=== PATIENT | male | born 1970 | race Caucasian/White ===

== ENCOUNTER 2019-03-22 09:56 | Inpatient (IN) | payer SELFPAY ==
[~2019-03-22] VITALS: Ht 188 cm; Wt 84.5 kg
[2019-03-22 11:30] LABS: BASOPHILS 0.1 % (0-2); EOSINOPHILS 0.2 % (0-7); HEMATOCRIT 50.1 % (42.0-54.0); HEMOGLOBIN 17.9 g/dL (13.5-17.5); IMMATURE GRANULOCYTES 0.3 % (0-5); LYMPHOCYTES 7.8 % (15-50); MCH 34.1 pg (26.0-34.0); MCHC 35.7 g/dL (31.0-37.0); MCV 95.4 fL (80.0-100.0); MEAN PLATELET VOLUME 9.7 fL (7.4-10.4); MONOCYTES 6.1 % (2-11); NEUTROPHILS 85.5 % (40-80); PLATELET COUNT 275 10x3/uL (130-400); RBC 5.25 10x6/uL (4.20-6.10); RDW 13.2 % (11.5-14.5); WBC 16.3 10x3/uL (4.8-10.8)
[2019-03-22 11:41] LABS: APPEARANCE CLOUDY (CLEAR); COLOR YELLOW (YELLOW)
[2019-03-22 11:42] LABS: BILIRUBIN NEGATIVE (NEGATIVE); GLUCOSE NEGATIVE (NEGATIVE); KETONE NEGATIVE (NEGATIVE); NITRITE NEGATIVE (NEGATIVE); PROTEIN TRACE mg/dL (NEGATIVE); SPECIFIC GRAVITY 1.005 (1.005-1.020); UROBILINOGEN NORMAL (NORMAL)
[2019-03-22 11:43] LABS: RED CELLS - URINE NONE SEEN /hpf (0-5)
[2019-03-22 11:44] LABS: AMORPHOUS SEDIMENT >1+ /lpf (NONE SEEN); BACTERIA MODERATE /hpf (NEGATIVE)
[2019-03-22 11:45] LABS: EPITHELIAL CELLS 0-5 /hpf (0-5)
[2019-03-22 11:53] LABS: CALC OSMOLALITY 269 mosm/kg (275-300); CALCIUM 9.3 mg/dL (8.5-10.1); CARBON DIOXIDE 28.8 mmol/L (21.0-32.0); CHLORIDE - SERUM 100 mmol/L (98-107); CREATININE - SERUM 0.9 mg/dL (0.6-1.3); GLUCOSE 104 mg/dL (74-106); POTASSIUM - SERUM 4.1 mmol/L (3.5-5.1); SODIUM 136 mmol/L (136-145); UREA NITROGEN 8 mg/dL (7-18); eGFR NON AFRICAN AMERICAN > 90 mL/min (90-120)
[2019-03-22 11:57] LABS: ALBUMIN 4.2 g/dL (3.4-5.0); ALKALINE PHOSPHATASE 78 U/L (46-116); ALT (SGPT) 25 U/L (10-68); BILIRUBIN - TOTAL 1.17 mg/dL (0.2-1.3); PROTEIN - SERUM 8.5 g/dL (6.4-8.2)
[2019-03-22 14:33] VITALS: BP 133/87
[2019-03-22 16:48] VITALS: BP 134/64; BMI 22.5
[2019-03-22 16:50] LABS: MAGNESIUM - SERUM 2.6 mg/dL (1.8-2.4)
[2019-03-22 21:36] VITALS: BP 135/71
--- NOTE | 2019-03-22 22:11 | NUR ---
LYIN QUIETLY WTIH NO DISTRESS NOTED. IV INTAC TO LAC.NO REDNESS OR EDEMA NOTED. COMPLAITNS OF ABD TENDERNESS TO TOUCH. PATIENT UP AD IAN IN ROOM. CL IN REACH
[2019-03-23 01:05] VITALS: BP 154/70
--- NOTE | 2019-03-23 04:18 | NUR ---
I have reviewed this patient and I concur with the Shift Assessment completed by the Licensed Practical Nurse today this shift.
[2019-03-23 05:16] VITALS: BP 128/67
[2019-03-23] MEDS ORDERED: OMEPRAZOLE20 M1 PO (05:38)
[2019-03-23 06:14] LABS: BASOPHILS 0.1 % (0-2); EOSINOPHILS 0.5 % (0-7); HEMATOCRIT 44.6 % (42.0-54.0); HEMOGLOBIN 15.5 g/dL (13.5-17.5); IMMATURE GRANULOCYTES 0.3 % (0-5); LYMPHOCYTES 11.9 % (15-50); MCH 33.3 pg (26.0-34.0); MCHC 34.8 g/dL (31.0-37.0); MCV 95.9 fL (80.0-100.0); MEAN PLATELET VOLUME 10.4 fL (7.4-10.4); MONOCYTES 7.4 % (2-11); NEUTROPHILS 79.8 % (40-80); PLATELET COUNT 248 10x3/uL (130-400); RBC 4.65 10x6/uL (4.20-6.10); RDW 13.1 % (11.5-14.5)
[2019-03-23 06:16] LABS: WBC 11.6 10x3/uL (4.8-10.8)
[2019-03-23 06:40] LABS: ALKALINE PHOSPHATASE 67 U/L (46-116); BILIRUBIN - TOTAL 1.03 mg/dL (0.2-1.3); CALC OSMOLALITY 275 mosm/kg (275-300); CALCIUM 8.5 mg/dL (8.5-10.1); CARBON DIOXIDE 23.8 mmol/L (21.0-32.0); CHLORIDE - SERUM 106 mmol/L (98-107); CREATININE - SERUM 0.8 mg/dL (0.6-1.3); GLUCOSE 85 mg/dL (74-106); LIPASE 81 U/L (73-393); POTASSIUM - SERUM 4.2 mmol/L (3.5-5.1); PROTEIN - SERUM 7.1 g/dL (6.4-8.2); SODIUM 139 mmol/L (136-145); UREA NITROGEN 10 mg/dL (7-18); eGFR NON AFRICAN AMERICAN > 90 mL/min (90-120)
[2019-03-23 06:43] LABS: ALT (SGPT) 17 U/L (10-68); AMYLASE - SERUM 35 U/L (25-115)
[2019-03-23 07:56] VITALS: BP 110/73
--- NOTE | 2019-03-23 08:02 | NUR ---
ALERT AND ORIENTED X4 ABDOMINAL TENDERNESS NOTED TO LLQ AND RLQ OF ABDOMEN ANTERIOR. WITH BS NOTEDX4. IV INFUSING TO RT F/A AT PRESCRIBED RATE. LUNGS CTA. ENCOURAGED TO USE CALL LIGHT FOR ASSIST. UP ADLIB
--- NOTE | 2019-03-23 19:00 | NUR ---
BEDSIDE REPORT RECEIVED AND CARE OF PT ASSUMED. PT LYING IN HIGH WEATHERS'S POSITION WATCHING TV. IV TO RIGHT FA PATENT WITH NS INFUSING AT KVO. NO NEEDS VOICED AT THIS TIME.
[2019-03-23 19:30] VITALS: BP 122/71
--- NOTE | 2019-03-23 21:03 | NUR ---
GAVE MORPHINE 4 MG IVP AND ATIVAN 1 MG PO FOR C/O PAIN AND ANXIETY. WILL MONITOR FOR EFFECTIVENESS.
--- NOTE | 2019-03-23 22:06 | NUR ---
GAVE CRANBERRY JUICE FOR SHACK PER REQUEST.
[2019-03-24 00:30] VITALS: BP 118/67
[2019-03-24 04:30] VITALS: BP 126/81
[2019-03-24 06:05] LABS: ALKALINE PHOSPHATASE 66 U/L (46-116); ALT (SGPT) 17 U/L (10-68); AMYLASE - SERUM 34 U/L (25-115); BILIRUBIN - TOTAL 0.77 mg/dL (0.2-1.3); CALC OSMOLALITY 277 mosm/kg (275-300); CALCIUM 9.1 mg/dL (8.5-10.1); CARBON DIOXIDE 22.9 mmol/L (21.0-32.0); CHLORIDE - SERUM 107 mmol/L (98-107); CREATININE - SERUM 0.8 mg/dL (0.6-1.3); GLUCOSE 111 mg/dL (74-106); LIPASE 82 U/L (73-393); PROTEIN - SERUM 7.3 g/dL (6.4-8.2); SODIUM 139 mmol/L (136-145); UREA NITROGEN 10 mg/dL (7-18); eGFR NON AFRICAN AMERICAN > 90 mL/min (90-120)
[2019-03-24 06:29] LABS: BASOPHILS 0.2 % (0-2); EOSINOPHILS 1.2 % (0-7); HEMOGLOBIN 15.6 g/dL (13.5-17.5); IMMATURE GRANULOCYTES 0.2 % (0-5); LYMPHOCYTES 12.1 % (15-50); MCH 33.1 pg (26.0-34.0); MCHC 34.7 g/dL (31.0-37.0); MCV 95.3 fL (80.0-100.0); MEAN PLATELET VOLUME 10.2 fL (7.4-10.4); MONOCYTES 7.8 % (2-11); NEUTROPHILS 78.5 % (40-80); PLATELET COUNT 247 10x3/uL (130-400); RBC 4.72 10x6/uL (4.20-6.10); RDW 12.6 % (11.5-14.5)
[2019-03-24 08:10] VITALS: BP 111/63
--- NOTE | 2019-03-24 09:00 | NUR ---
ALERT AND ORIENTED X4 WITH DECREASED LOWER ABDOMINAL TENDERNESS ON PALPATION TO RLQ AND LLQ OF ABDOMEN. WITH BOWEL SOUNDS NOTED X4.IV TO RT. F/A INFUSING AT PRESCRIBED RATE. RESIDENT HAD LOOSE DARK TARRY STOOL YESTERDAY. DENEIS ANY PAIN OR DISCOMFORT AT THIS TIME AND ENCOURAGED TO USE CALL LIGHT FOR ASSSIT.
[2019-03-24 12:11] VITALS: BP 165/67
--- NOTE | 2019-03-24 12:32 | NUR ---
PT COMPLAINING OF CHARP LOWER ABDOMINAL PAIN WITH TENDERNESS NOTED ON PALPATION. PORPHINE 4MG GIVEN FOR SHARP STABBING PAIN 01/29. SKIN WARM AND DRY. WILL CONTINUE TO MONITOR. STATES FEELS UNABLE TO PASS GAS AND HAS PAIN THAT RADIATIATES UP HIS ANUS.
--- NOTE | 2019-03-24 14:07 | NUR ---
PT CONTINUES TO COMPLAIN OF LOWER ABDOMINAL PAIN AND BURNING ON URINATION.V/S 130/79 55 20 98.9 TEMP. TYLENOL AND ATIVAN GIVEN FOR PAIN AND ANXIETY. INSTRUCTD ON NEED FOR URINE SPECIMEN. SKIN WARM AND DRY AND INSTRUCTD NOT TO GET UP W/O ASSIST.
[2019-03-24 14:09] VITALS: BP 129/79
[2019-03-24 15:29] LABS: APPEARANCE CLEAR (CLEAR); BILIRUBIN NEGATIVE (NEGATIVE); COLOR YELLOW (YELLOW); GLUCOSE NEGATIVE (NEGATIVE); KETONE MODERATE mg/dL (NEGATIVE); NITRITE NEGATIVE (NEGATIVE); PROTEIN NEGATIVE (NEGATIVE); UROBILINOGEN NORMAL (NORMAL)
[2019-03-24 15:30] LABS: BACTERIA FEW /hpf (NEGATIVE); EPITHELIAL CELLS 0-5 /hpf (0-5); RED CELLS - URINE 0-5 /hpf (0-5); UDS - AMPHET NEGATIVE QUAL (NEGATIVE); UDS - BARB NEGATIVE QUAL (NEGATIVE); UDS - BENZO NEGATIVE QUAL (NEGATIVE); UDS - COCAINE NEGATIVE QUAL (NEGATIVE); UDS - OPIATE POSITIVE QUAL (NEGATIVE); UDS - PCP NEGATIVE QUAL (NEGATIVE); UDS - THC POSITIVE QUAL (NEGATIVE); WHITE CELLS - URINE 0-5 /hpf (NEGATIVE)
[2019-03-24 15:31] LABS: MUCUS <1+ /lpf (NONE SEEN)
--- NOTE | 2019-03-24 19:00 | NUR ---
BEDSIDE REPORT RECEIVED AND CARE OF PT ASSUMED. PT UP TO RESTROOM AT THIS TIME. C/O SEVERE PAIN IN ABDOMEN. PT VERY ANXIOUS. IV TO RIGHT FA PATENT WITH MVI INFUSING AT 125 ML/HR. WILL MONITOR FOR NEEDS.
--- NOTE | 2019-03-24 19:20 | NUR ---
GAVE MORPHINE 4 MG IVP AND ATIVAN 1 MG PO FOR C/O PAIN AND ANXIETY. WILL MONITOR FOR EFFECTIVENESS.
[2019-03-24 19:30] VITALS: BP 141/84
--- NOTE | 2019-03-24 19:53 | NUR ---
GAVE LIBRIUM P0 PER NEW ORDER.
--- NOTE | 2019-03-24 20:23 | NUR ---
GAVE ATIVAN 1 MG PO PT CONTINUES TO BE VERY AGGITATED. WILL CONTINUE TO MONITOR FOR NEEDS.
--- NOTE | 2019-03-24 22:09 | NUR ---
PT RESTING IN SUPINE POSITION WITH EYES CLOSED AT THIS TIME. WILL CONTINUE TO MONITOR FOR NEEDS.
--- NOTE | 2019-03-24 23:34 | NUR ---
GAVE MORPHINE 4 MG IVP PER REQUEST FOR ABDOMINAL PAIN.
[2019-03-25 00:30] VITALS: BP 131/89
--- NOTE | 2019-03-25 00:36 | NUR ---
GAVE ATIVAN 1 MG PO PER REQUEST FOR ANXIETY / ? DT'S...PT VERY RESTLESS. WILL MONITOR FOR EFFECTIVENESS.
[2019-03-25 06:26] LABS: BASOPHILS 0.1 % (0-2); EOSINOPHILS 0.1 % (0-7); HEMATOCRIT 47.3 % (42.0-54.0); HEMOGLOBIN 16.7 g/dL (13.5-17.5); IMMATURE GRANULOCYTES 0.3 % (0-5); LYMPHOCYTES 3.3 % (15-50); MCH 33.3 pg (26.0-34.0); MCHC 35.3 g/dL (31.0-37.0); MCV 94.2 fL (80.0-100.0); MEAN PLATELET VOLUME 10.3 fL (7.4-10.4); MONOCYTES 4.4 % (2-11); NEUTROPHILS 91.8 % (40-80); PLATELET COUNT 278 10x3/uL (130-400); RBC 5.02 10x6/uL (4.20-6.10); RDW 12.5 % (11.5-14.5)
[2019-03-25 06:45] LABS: WBC 18.4 10x3/uL (4.8-10.8)
[2019-03-25 06:56] LABS: ALKALINE PHOSPHATASE 64 U/L (46-116); ALT (SGPT) 16 U/L (10-68); BILIRUBIN - TOTAL 1.01 mg/dL (0.2-1.3); CALC OSMOLALITY 276 mosm/kg (275-300); CALCIUM 8.5 mg/dL (8.5-10.1); CARBON DIOXIDE 22.1 mmol/L (21.0-32.0); CHLORIDE - SERUM 104 mmol/L (98-107); CREATININE - SERUM 0.7 mg/dL (0.6-1.3); GLUCOSE 121 mg/dL (74-106); POTASSIUM - SERUM 4.5 mmol/L (3.5-5.1); PROTEIN - SERUM 6.4 g/dL (6.4-8.2); SODIUM 138 mmol/L (136-145); eGFR NON AFRICAN AMERICAN > 90 mL/min (90-120)
[2019-03-25 06:57] LABS: AMYLASE - SERUM 20 U/L (25-115); LIPASE 41 U/L (73-393); UREA NITROGEN 13 mg/dL (7-18)
--- NOTE | 2019-03-25 07:20 | NUR ---
PT RESTING IN BED. NO SIGNS OF DISTRESS. IV TO RIGHT FORARM PATENT NO REDNESS OR TENDERNESS. COMPLAINS OF PAIN. MEDICATIONS GIVEN. DENIES ANY FURTHER NEED AT THIS TIME. CALL LIGHT IN REACH.BED LOW POSITION. NO FAMILY AT BEDSIDE AT THIS TIME.
[2019-03-25 08:29] VITALS: BP 137/93
[2019-03-25 13:00] VITALS: BP 139/94
[2019-03-25 14:45] LABS: APTT 34.2 SECONDS (22.8-39.4); INR 1.18 (0.85-1.17); PROTIME 14.5 SECONDS (11.6-15.0)
[2019-03-25 14:55] VITALS: BMI 22.4
[2019-03-25 15:45] VITALS: BP 126/89
[2019-03-25 15:58] VITALS: Ht 188 cm; Wt 84.5 kg
[2019-03-25 17:14] LABS: ERYTHROCYTE SEDIMENTATION RATE 20 mm/hr (0-15)
--- NOTE | 2019-03-25 18:44 | NUR ---
I have reviewed this patient and I concur with the Shift Assessment completed by the Licensed Practical Nurse today this shift.
[2019-03-25 19:30] VITALS: BP 143/94; BP 158/96
--- NOTE | 2019-03-25 19:45 | NUR ---
PT SITTING UP IN BED WITHOUT DISTRESS, AOX4. IV RIGHT FA INFUSING BANANA BAG @ 125. PT STATES PAIN IN ABD 10/29. WILL GIVE PAIN MED ORDERED. DENIES NEEDS AT THIS TIME. CL IN REACH, WILL CTM
--- NOTE | 2019-03-25 20:20 | NUR ---
MORPHINE GIVEN FOR PAIN 02/28 IN ABD. DENIES OTHER NEEDS. WILL CTM
--- NOTE | 2019-03-26 00:20 | NUR ---
PT GIVEN MORPHINE AND ZOFRAN FOR PAIN IN ABD 10/ AND NAUSEA. GAVE PT TWO HEAT PACKS FOR ABD. DENIES OTHER NEEDS. CL IN REACH, WILL CTM
--- NOTE | 2019-03-26 03:00 | NUR ---
PROVIDED PT WITH TWO NEW HEAT PACKS, PT STATES THEY REALLY HELPED WITH PAIN. DENIESO THER NEEDS. CL IN REACH, WILL CTM
[2019-03-26 04:30] VITALS: BP 129/86
--- NOTE | 2019-03-26 07:15 | NUR ---
REC'D IN BED AWAKE AND ALERT. RESP EVEN AND UNLABORED WITH NO DISTRESS NOTED. CAN EXPRESS NEEDS AND WANTS. ASSESSMENT COMPLETED. C/L IN REACH AT BEDSIDE.
--- NOTE | 2019-03-26 07:30 | NUR ---
REC'D IN BED AWAKE AND ALERT. RESP EVEN AND UNLABORED WITH NO DISTRESS NOTED. CAN VOICE NEEDS AND WANTS. NO C/O NOTED OR VOICED AT THIS TIME. ASSESSMENT OCMPLETED. C/L IN REACH AT BEDSIDE.
[2019-03-26 07:55] VITALS: BP 145/89
[2019-03-26 08:31] LABS: BASOPHILS 0.1 % (0-2); EOSINOPHILS 0 % (0-7); HEMATOCRIT 41.9 % (42.0-54.0); HEMOGLOBIN 14.8 g/dL (13.5-17.5); IMMATURE GRANULOCYTES 0.4 % (0-5); LYMPHOCYTES 2.5 % (15-50); MCHC 35.3 g/dL (31.0-37.0); MCV 93.3 fL (80.0-100.0); MEAN PLATELET VOLUME 9.6 fL (7.4-10.4); MONOCYTES 4.5 % (2-11); NEUTROPHILS 92.5 % (40-80); PLATELET COUNT 274 10x3/uL (130-400); RBC 4.49 10x6/uL (4.20-6.10); RDW 12.5 % (11.5-14.5); WBC 18.2 10x3/uL (4.8-10.8)
[2019-03-26 09:02] LABS: ALBUMIN 2.6 g/dL (3.4-5.0); ALKALINE PHOSPHATASE 58 U/L (46-116); ALT (SGPT) 11 U/L (10-68); AMYLASE - SERUM 26 U/L (25-115); BILIRUBIN - TOTAL 0.55 mg/dL (0.2-1.3); CALC OSMOLALITY 278 mosm/kg (275-300); CALCIUM 9.1 mg/dL (8.5-10.1); CARBON DIOXIDE 26.4 mmol/L (21.0-32.0); CHLORIDE - SERUM 103 mmol/L (98-107); CREATININE - SERUM 0.7 mg/dL (0.6-1.3); GLUCOSE 135 mg/dL (74-106); LDH 100 U/L (85-227); LIPASE 48 U/L (73-393); POTASSIUM - SERUM 4.1 mmol/L (3.5-5.1); PROTEIN - SERUM 6.8 g/dL (6.4-8.2); SODIUM 138 mmol/L (136-145); UREA NITROGEN 16 mg/dL (7-18); eGFR NON AFRICAN AMERICAN > 90 mL/min (90-120)
[2019-03-26 10:10] LABS: HEPATITIS C ANTIBODY 0.1 S/CO RAT (0.0-0.9)
--- NOTE | 2019-03-26 12:05 | NUR ---
NG TUBE DROPPED AT THIS TIME WITH 16F CATH. TOLERATED WELL. C/L IN REACH AT BEDSIDE.
[2019-03-26 13:03] VITALS: BP 149/100
[2019-03-26 16:29] VITALS: BP 132/102
--- NOTE | 2019-03-26 16:33 | MORECARE ---
CASE MANAGEMENT DISCHARGE SUMMARY PATIENT: LI MUHAMMAD UNIT: [id number] ADM DATE: 03/22/19 AGE: 48 : 70 SEX: M ROOM/BED: D.2230 AUTHOR: LORENZO CORDOVA PHYSICIAN: REFERRING PHYSICIAN: RODRÍGUEZ NERI DO DATE OF SERVICE: 03/26/19 Discharge Plan Patient Name: LI MUHAMMAD [facility] [facility] 1970 Planned Disposition: Home Anticipated Discharge Date: Discharge Date: Expected LOS: Initial Reviewer: [email or web address] Initial Review Date: 03/26/2019 Generated: 03/26/19 5:32 pm Patient Name: LI MUHAMMAD Page [id number] at 1633 All edits/amendments must be made on the electronic document DICTATION DATE: 03/26/191631 HIGHWAY TRUCK DRIVER: ANDREAS 03/26/19 163 RPT#: [id number] DC DATE: STATUS: ADM IN [facility] [address] [place] [address] END OF REPORT
--- NOTE | 2019-03-26 16:43 | MORECARE ---
CASE MANAGEMENT DISCHARGE SUMMARY PATIENT: LI MUHAMMAD UNIT: [id number] ADM DATE: 03/22/19 AGE: 48 : 70 SEX: M ROOM/BED: D.2230 AUTHOR: LORENZO CORDOVA PHYSICIAN: REFERRING PHYSICIAN: RODRÍGUEZ NERI DO DATE OF SERVICE: 03/26/19 Discharge Plan Patient Name: LI MUHAMMAD Facility: [facility]:[place] : 1970 Planned Disposition: Home Anticipated Discharge Date: Discharge Date: Expected LOS: Initial Reviewer: [email or web address] Initial Review Date: 03/26/2019 Generated: 03/26/19 5:42 pm Comments DCP- Discharge Planning Updated by [email or web address]: Heather Duff on 03/26/19 3:[address] Patient Name: LI MUHAMMAD Admission Status: ER Accout number: [id number] Admission Date: 03-22-2019 : 1970 Admission Diagnosis: Attending: RODRÍGUEZ NERI Current LOS: 4 Anticipated DC Date: Planned Disposition: Home Primary Insurance: UNINSURED DISCOUNT PLAN Discharge Planning Comments: CM met with patient in the room to discuss discharge planning/needs. He is complaining of pain and primary nurse notified. He was visiting here from [place]. He states plan to return to [place] on discharge. He is independent with all ADL's and AIDL's. He states he does not have any DME or need any DME. He is asking me to come back at a later date, unable to talk well with NGT. CM will continue to follow and assist with discharge planning/needs. Director Of Vocational Training: Heather Duff Last DP export: 03/26/19 3:33 p Patient Name: LI MUHAMMAD Page [phone] at 1643 All edits/amendments must be made on the electronic document DICTATION DATE: 03/26/191641 MEASURER MACHINE: ANDREAS 03/26/191641 RPT#: [id number] DC DATE: STATUS: ADM IN [facility] [address] [place] [address] END OF REPORT
--- NOTE | 2019-03-26 18:02 | NUR ---
REC'D CALL FROM PT FRIEND GREYSON INQUIRING ABOUT PT GAGGING.THIS NURSE INFORMED HER THAT PT HAS A NG TUBE IN PLACE AND THAT EVERYTIME THAT HE TURNS HIS HEAD THAT HE GAGS. THEN GREYSON ASKS IF HE HAS ANY HURRICANE SPRAY THAT HE CAN USE. THIS NURSE INFORM HER THAT HE HAS CHLORASEPTIC SPRAY AT BEDSIDE THAT PT IS USING THEN GREYSON GOES ON TO SAY THAT HE CAN'T USE SPRAY. THIS NURSE INFORMED HER THAT HE JUST USED SPRAY PROPERLY ABOUT 3-5 MINS AGO WHEN THIS NURSE WAS IN ROOM HANGING ANTIBOTICS. THEN SHE ASKED IF SHE COULD ONCE AGAIN HAVE MD NUMBER THIS NURSE INFORMED HER THAT IS AGAINST HOSPITAL POLICY TO GIVE OUT MD NUMBERS AND THAT DR. SANTANA IS AWARE THAT SHE WANTS HIM TO GIVEN HER A CALL D/T THIS NURSE RECIEVING FROM CALL FROM DR. SANTANA OFFICER EARLIER STATING THAT GREYSON THE FRIEND HAS CALLED THEM SEVERAL TIMES WELL HERE TO THE FLOOR. THIS NURSE HAS TALK WITH PT AND HE HAS NO C/O NOTED AT THIS TIME. PAIN MEDICATION AND ZOFRAN OFFERED BUT PT STATED THAT HE DOESN'T NEED ANY AND WHEN HE DO HE WILL PUT ON HIS LIGHT TO INFORM ME. GREYSON WANTED TO SPEAK WITH HOUSE SUPERVISER. HS WAS CALL AND INFORMED OF THE SITUATION AND TRANSFERRED OVER TO SPEAK WITH HS. PT STILL VOICE NO CONCERN AT THIS TIME. C/L IN REACH AT BEDSIDE.
--- NOTE | 2019-03-26 18:43 | NUR ---
I have reviewed this patient and I concur with the Shift Assessment completed by the Licensed Practical Nurse today this shift.
--- NOTE | 2019-03-26 18:45 | NUR ---
WAS CALLED BY FOR TO INFORM DR. ELIAS TO GIVE FAMILY CALL. DR. ELIAS WAS INFORMED BY THIS NURSE TO CALL FAMILY AND NUMBER OF MICHAEL DERREK WAS GIVEN TO .
[2019-03-26 19:30] VITALS: BP 139/89
--- NOTE | 2019-03-26 20:00 | NUR ---
LYING IN BED. HOB ELEVATED. ALERT AND ORIENTED TO SELF, PLACE AND SITUATION. CONFUSED TO TIME. ABD IS DISTENDED AND FIRM. BS ARE HYPOACTIVE X4 QUADS. NGT TO RT NARE TO LIS WITH BURGANDY COLORED DRAINAGE IN CANISTER. REPORTS ABD PAIN 6. CHLORASEPTIC SPRAY IN BED WITH PT FOR SORE THROAT. NS @ 30 MLHR INFUSING IN LT HAND WITH PROCAL @ 75 MLHR. STATES HE IS PASSING GAS. SR ELEVATED X2. CL IN REACH.
--- NOTE | 2019-03-26 20:20 | NUR ---
MEDICATED WITH MORPHINE AND ZOFRAN FOR C/O PAIN AND NAUSEA. PT GIVEN LIBRIUM ORDERED. NGT CLAMPED AT THIS TIME. CL IN REACH.
--- NOTE | 2019-03-26 21:00 | NUR ---
NGT BACK TO LIS. PT NESHA WELL. CL IN REACH.
[2019-03-27 00:30] VITALS: BP 141/84
[2019-03-27 05:09] VITALS: BP 131/82
[2019-03-27 06:15] LABS: BASOPHILS 0.1 % (0-2); EOSINOPHILS 0.1 % (0-7); HEMATOCRIT 41.6 % (42.0-54.0); HEMOGLOBIN 14.1 g/dL (13.5-17.5); IMMATURE GRANULOCYTES 0.3 % (0-5); LYMPHOCYTES 3.6 % (15-50); MCH 32.4 pg (26.0-34.0); MCHC 33.9 g/dL (31.0-37.0); MEAN PLATELET VOLUME 9.7 fL (7.4-10.4); MONOCYTES 5.3 % (2-11); NEUTROPHILS 90.6 % (40-80); PLATELET COUNT 230 10x3/uL (130-400); RBC 4.35 10x6/uL (4.20-6.10); RDW 12.5 % (11.5-14.5); WBC 15.9 10x3/uL (4.8-10.8)
[2019-03-27 06:36] LABS: MCV 95.6 fL (80.0-100.0)
[2019-03-27 06:51] LABS: ALBUMIN 2.4 g/dL (3.4-5.0); ALKALINE PHOSPHATASE 57 U/L (46-116); ALT (SGPT) 10 U/L (10-68); AMYLASE - SERUM 31 U/L (25-115); BILIRUBIN - TOTAL 0.42 mg/dL (0.2-1.3); CALC OSMOLALITY 282 mosm/kg (275-300); CALCIUM 8.4 mg/dL (8.5-10.1); CARBON DIOXIDE 24.1 mmol/L (21.0-32.0); CHLORIDE - SERUM 104 mmol/L (98-107); CREATININE - SERUM 0.7 mg/dL (0.6-1.3); GLUCOSE 108 mg/dL (74-106); LIPASE 80 U/L (73-393); MAGNESIUM - SERUM 2.4 mg/dL (1.8-2.4); PHOSPHOROUS 2.7 mg/dL (2.5-4.9); POTASSIUM - SERUM 4.1 mmol/L (3.5-5.1); PROTEIN - SERUM 5.6 g/dL (6.4-8.2); SODIUM 140 mmol/L (136-145); UREA NITROGEN 20 mg/dL (7-18); eGFR NON AFRICAN AMERICAN > 90 mL/min (90-120)
[2019-03-27 08:03] VITALS: BP 128/86
--- NOTE | 2019-03-27 09:31 | NUR ---
RESTARTED PT NGT AFTER STOPPING IT FOR PT TO HAVE LIBRIUM, CONTINUE WITH PLAN OF CARE. NO NEEDS VOICED FROM PT
[2019-03-27 12:15] VITALS: BP 126/80
--- NOTE | 2019-03-27 14:11 | NUR ---
I have reviewed this patient and I concur with the Shift Assessment completed by the Licensed Practical Nurse today this shift.
[2019-03-27 17:08] LABS: OVA + PARASITE EXAM Final report (())
[2019-03-27 17:20] VITALS: BP 134/75
[2019-03-27 21:00] VITALS: BP 140/85
--- NOTE | 2019-03-27 22:45 | NUR ---
A/O WITH NO SIGNS OF ACUTE DISTRESS. IV TO THE LT HAND WITH NO REDNESS OR SWELLING NOTED. NGT NOTED TO THE LT NARE WITH LIGHT RED DISCHARGE. ASSESSED PLACEMENT WITH 20ML OF AIR. ABD DISTEDED AND FIRM. COMPLAINING OF 9/10 PAIN. DENIES NO OTHER NEEDS AT THIS TIME. CONTINE PLAN OF CARE.
[2019-03-28] VITALS (8 sets, daily range): BP systolic 125–144; BP diastolic 82–101
--- NOTE | 2019-03-28 05:00 | NUR ---
PT STATES THAT HE FEELS THAT NOTHING IS HELPING HIM SUCH THE PAIN MEDS OR THE NGT. STATES THAT HE FEELS WORST. GAVE PRN ATIVAN TO HELP CALM PT. WILL CONTINUE TO MONITOR.
--- NOTE | 2019-03-28 05:40 | NUR ---
PT RESTING IN BED. TUNRED ON SUCTION AND TO MONITOR EFFECTIVENESS OF ATIVAN. PT AWOKE WHEN SUCTION TURNED ON AND BEGAN TO GAGGING. GAVE EMESIS BAG AND ZOFRAN FOR NAUSEA, WILL CTM.
[2019-03-28 06:31] LABS: BASOPHILS 0.3 % (0-2); EOSINOPHILS 0.8 % (0-7); HEMATOCRIT 40.9 % (42.0-54.0); HEMOGLOBIN 14.4 g/dL (13.5-17.5); IMMATURE GRANULOCYTES 0.4 % (0-5); LYMPHOCYTES 9.9 % (15-50); MCH 32.7 pg (26.0-34.0); MCHC 35.2 g/dL (31.0-37.0); MEAN PLATELET VOLUME 10.1 fL (7.4-10.4); MONOCYTES 7.9 % (2-11); NEUTROPHILS 80.7 % (40-80); RBC 4.41 10x6/uL (4.20-6.10); RDW 12.3 % (11.5-14.5)
[2019-03-28 06:37] LABS: MCV 92.7 fL (80.0-100.0); PLATELET COUNT 329 10x3/uL (130-400); WBC 11.3 10x3/uL (4.8-10.8)
--- NOTE | 2019-03-28 07:20 | NUR ---
PT RESTING IN BED WITH EYES CLOSED. AWAKENS WITH NAME CALLED. NGT IN PLACE DRAINING BROWNISH GREEN DRAINAGE TO LOW INTERMITTENT SUCTIONING. BS HYPOACTIVE ABDOMEN DISTENDED. IV TO LEFT HAND WITH PROCAL @ 70ML/HR, BANANA BAG @ 125ML/HR INFUSING VIA PUMP. SITE WITHOUT REDNESS OR EDEMA. DENIES FURTHER NEEDS AT THIS TIME. CL WITHIN REACH. ENCOURAGED TO CALL WITH NEEDS. CONTINUE POC
[2019-03-28 07:27] LABS: ALBUMIN 2.4 g/dL (3.4-5.0); ALKALINE PHOSPHATASE 54 U/L (46-116); ALT (SGPT) 10 U/L (10-68); BILIRUBIN - TOTAL 0.37 mg/dL (0.2-1.3); CALC OSMOLALITY 273 mosm/kg (275-300); CALCIUM 8.8 mg/dL (8.5-10.1); CARBON DIOXIDE 24.1 mmol/L (21.0-32.0); CHLORIDE - SERUM 102 mmol/L (98-107); CREATININE - SERUM 0.6 mg/dL (0.6-1.3); GLUCOSE 90 mg/dL (74-106); POTASSIUM - SERUM 3.8 mmol/L (3.5-5.1); PROTEIN - SERUM 6.5 g/dL (6.4-8.2); SODIUM 136 mmol/L (136-145); UREA NITROGEN 17 mg/dL (7-18); eGFR NON AFRICAN AMERICAN > 90 mL/min (90-120)
--- NOTE | 2019-03-28 14:03 | NUR ---
Nutrition follow-up: NPO; NGT->LIWS ProcalAmine PPN @ 75 ml/hr Labs reviewed Wt: 175# some N/V noted Recommend increasing ProcalAmine PPN to 125 ml/hr to better meet est needs. Also recommend starting 20% 250 ml Intralipid q day if TG are WNL RDN following.
--- NOTE | 2019-03-28 18:52 | NUR ---
SURGICEL REF 1952 2"X3" LOT [id number] EXP 05/21/2020 BIOGLUE REF [id number] LOT [id number] RC REF [id number] LOT [id number] EXP 12/17/2023 RC REF [id number] LOT [id number] EXP 11/17/2023
[2019-03-28 20:33] LABS: CALCIUM 7.7 mg/dL (8.5-10.1); CARBON DIOXIDE 20.5 mmol/L (21.0-32.0); CHLORIDE - SERUM 105 mmol/L (98-107); SODIUM 138 mmol/L (136-145); UREA NITROGEN 20 mg/dL (7-18)
[2019-03-28 20:34] LABS: CALC OSMOLALITY 281 mosm/kg (275-300); CREATININE - SERUM 0.9 mg/dL (0.6-1.3); GLUCOSE 147 mg/dL (74-106); POTASSIUM - SERUM 4.6 mmol/L (3.5-5.1); eGFR NON AFRICAN AMERICAN > 90 mL/min (90-120)
[2019-03-28 20:37] LABS: BASOPHILS 0.3 % (0-2); EOSINOPHILS 0.2 % (0-7); IMMATURE GRANULOCYTES 0.4 % (0-5); LYMPHOCYTES 3.8 % (15-50); MCH 32.3 pg (26.0-34.0); MCHC 35.3 g/dL (31.0-37.0); MCV 91.5 fL (80.0-100.0); MEAN PLATELET VOLUME 10.1 fL (7.4-10.4); MONOCYTES 3.8 % (2-11); NEUTROPHILS 91.5 % (40-80); PLATELET COUNT 354 10x3/uL (130-400); RDW 13.1 % (11.5-14.5)
[2019-03-28 20:39] LABS: HEMATOCRIT 53.6 % (42.0-54.0); HEMOGLOBIN 18.9 g/dL (13.5-17.5); RBC 5.86 10x6/uL (4.20-6.10)
--- NOTE | 2019-03-28 21:15 | NUR ---
Received patient from OR to 2308, connected to monitor with assessment completed per flowsheet. Patient AO x4, answers appropriately/follows instructions. NGT R nare to LIWS, small dark secretions noted. S1/S2 noted NSR on telemetry, rythmic and regular. Breathing is even/unlabored on 2L via NC with O2 sat 98%, lung sounds clear throughout. Abdomen is flat with bowel sounds hypoactive x3, Colostomy site R upper with small bloody drainage noted. Midline Abdomen incision dressing CDI, SALBADOR x2 bilateral lower with bloody drainage. Brizuela secured, clear yellow urine noted. All pulses palpable with cap refill < 3 sec, skin warm/dry. ACTIVITY DIRECTOR in use for pain mgmt, denies further needs at this time. See flowsheet for details, all VSS and will continue to monitor.
--- NOTE | 2019-03-28 23:00 | NUR ---
Reassessment completed per flowsheet, no changes noted from previous assessment. NGT to LIWS, small dark drainage ntoed. S1/S2 noted Sinus Tach on telemetry, rythmic and regular. Breathing is even/unlabored on room air with O2 sat 97%, lung sounds clear throughout. Abdominal incision dressing CDI, SALBADOR x2 with small bloody drainage. Colostomy site bag secured, small bloody drainage noted. All pulses palpable with cap refill < 3 sec, skin warm/dry. PACK MULE WORKER in use for pain mgmt, see flowsheet for details. All VSS and will continue to monitor.
[2019-03-29] VITALS (11 sets, daily range): BP systolic 113–143; BP diastolic 85–101
--- NOTE | 2019-03-29 01:00 | NUR ---
Patient sleeping in bed with eyes closed, no s/s of distress at this time. Repositioned for comfort, patient refuses linen change at this time due to pain. TABLET TESTER in use, no further needs and will continue to monitor.
--- NOTE | 2019-03-29 03:00 | NUR ---
Reassessment completed per flowsheet, no changes noted from previous assessment. S1/S2 noted Sinus Tach on telemetry, rythmic and regular. Breathing is even/unlabored on room air with O2 sat 96%, lung sounds clear throughout. Midline Abdomen incision dressing CDI, SALBADOR x1 lower abdomen with bloody drainage. All pulses palpable with cap refill < 3 sec, skin warm/dry. See flowsheet for details, all VSS and will continue to monitor.
[2019-03-29 03:58] LABS: CALC OSMOLALITY 285 mosm/kg (275-300); CALCIUM 7.7 mg/dL (8.5-10.1); CARBON DIOXIDE 23.5 mmol/L (21.0-32.0); CHLORIDE - SERUM 106 mmol/L (98-107); CREATININE - SERUM 1.1 mg/dL (0.6-1.3); MAGNESIUM - SERUM 1.7 mg/dL (1.8-2.4); POTASSIUM - SERUM 4.5 mmol/L (3.5-5.1); SODIUM 138 mmol/L (136-145); UREA NITROGEN 24 mg/dL (7-18); eGFR NON AFRICAN AMERICAN 76 mL/min (90-120)
[2019-03-29 04:00] LABS: GLUCOSE 201 mg/dL (74-106); PHOSPHOROUS 5.7 mg/dL (2.5-4.9)
[2019-03-29 04:04] LABS: HEMATOCRIT 51.3 % (42.0-54.0); HEMOGLOBIN 18.1 g/dL (13.5-17.5); MCH 32.2 pg (26.0-34.0); MCHC 35.3 g/dL (31.0-37.0); MCV 91.3 fL (80.0-100.0); PLATELET COUNT 281 10x3/uL (130-400); RBC 5.62 10x6/uL (4.20-6.10); RDW 13.4 % (11.5-14.5); WBC 21.4 10x3/uL (4.8-10.8)
[2019-03-29 04:57] LABS: EOSINOPHILS 1 % (0-7); LYMPHOCYTES 5 % (15-50); MONOCYTES 7 % (2-11); NEUTROPHILS 82 % (40-80)
[2019-03-29 04:59] LABS: PLATELET ESTIMATE NORMAL
--- NOTE | 2019-03-29 05:00 | NUR ---
Patient resting in bed with eyes closed, denies needs at this time. All VSS and will continue to monitor.
--- NOTE | 2019-03-29 07:56 | NUR ---
REPORT RECIEVED. MORNING MEDS GIVEN PER JUL. PATIENT REPORTS 8/10 PAIN. REMINDED PATIENT EVERY 10 MINUTES HE CAN GET DILAUDED FROM VARNISH REMOVER. EDUCATED ON TYLENOL IV MEDICATION. PATIENT REFUSED TO MOVE DUE TO PAIN. REFUSED ORAL CARE. SEE ASSESSMENT. SALBADOR DRAINS EMPTIED. 100 ML FROM R SALBADOR. 70 ML FROM L SALBADOR. COLOSTOMY BAG HAS ABOUT 20 CC OF BLOOD. ABD INCISION SITE HAS DRESSING CDI. MINIMAL MOVEMENT PROMOTES PAIN. PATIENT PULLED UP IN BED BY HIMSELF. BIJAN TO ADRIENNE. WILL CONTINUE TO MONITOR.
--- NOTE | 2019-03-29 07:58 | OP ---
PATIENT NAME: LI MUHAMMAD MEDICAL RECORD: [id number] :[birth year] LOCATION:.[facility] D.2309 ADMISSION DATE:03/22/19 SURGEON: KIM SANTANA MD DATE OF OPERATION: 03/28/2019 SURGEON: Kim Santana MD MAILER SURGEON: Chuck Ag MD PREOPERATIVE DIAGNOSES: Perforated diverticulitis, intra-abdominal abscess. POSTOPERATIVE DIAGNOSES: Perforated diverticulitis, intraloop abscess, pelvic abscess. PROCEDURE PERFORMED: 1. Sigmoid colectomy. 2. Mobilization of splenic flexure. 3. Diverting loop ileostomy. 4. Appendectomy. 5. Abdominal washout. 6. Ultrasound-guided left internal jugular CVL placement. ANESTHESIA: General. COMPLICATIONS: None. SPECIMENS: Sigmoid colon, appendix, portion of small bowel, intraabdominal fluid cultures. ESTIMATED BLOOD LOSS: 600 cc. Case was grossly contaminated. OPERATIVE COURSE: After consent was obtained, the patient was taken to the operating room and placed in supine position on the operating table. Next, general anesthesia was given via endotracheal intubation. Once the patient was under adequate general anesthesia, a timeout was taken to confirm the correct patient and procedure. The left neck was prepped and draped in a typical sterile fashion. The ultrasound was used to identify the left internal jugular vein and left common carotid artery. Local anesthetic was administered. Under ultrasound guidance, the left internal jugular was cannulated, blood was aspirated, stomach guidewire was placed. A skin incision was made. The dilator was passed and the wire in standard Seldinger fashion. The catheter was passed over the wire in standard Seldinger fashion. A Biopatch was placed. It was secured to the skin using 2-0 Prolene suture. All 3 ports were aspirated and flushed. It was covered with sterile Tegaderm dressing. The patient was then placed in the lithotomy position. The rectum was prepped. The abdomen was then prepped and draped in typical sterile fashion. Midline abdominal incision was made with a 10-blade scalpel. Dissection continued to subcutaneous tissue using electrocautery. The fascia was opened with electrocautery. The peritoneum was grasped with Alicia clamps times 2 and cut with Metzenbaum scissors. Once we had direct visualization of the bowel, remaining portion of the abdominal incision was opened with electrocautery and an Ioban dressing was placed prior to incision. An Wellington wound retractor was then placed. There was approximately 600 cc of purulent material within the abdomen that was suctioned. A portion OPERATIVE REPORT [id number] LI MUHAMMAD that was collected for culture, Gram stain and sensitivity sent to microbiology. Multiple intraloop abscesses were taken down with blunt dissection. There were 2 loops of bowel in the deep pelvis contained in an abscess with the sigmoid colon. These were able to be teased with gentle blunt dissection. At this time, the abdomen was copiously irrigated and suctioned. The area of perforated diverticulitis was noted. At this time, the left colon was mobilized. The white line of Toldt was taken down using electrocautery. The left colon was mobilized to the level of the splenic flexure. The sigmoid colon was then gently dissected off the left pelvic side wall. The left ureter was identified, it was dissected and a vessel loop was placed around the left ureter. The hemorrhoidal vessels were then identified and the mesentery dissection continued on to the hemorrhoidal vessels, which were taken with the Harmonic scalpel. The mesentery was then continually dissected to the sacral promontory using the Harmonic scalpel. The presacral fascia was bluntly dissected. The sigmoid colon was then transected and a margin of healthy and viable tissue with the MARIEL stapler. Dissection at this time then continued down into the deep pelvis, mobilized and taken down the peritoneal reflection to allow for full mobilization of the rectum anteriorly and laterally. The posterior was dissected along the sacral promontory in the presacral fascia plane. Once the rectosigmoid junction was identified, the stapler was fired across just below the rectosigmoid junction on the upper rectum using a MARIEL linear cutting stapler. At this time, the sigmoid colon specimen was passed off the field and sent for permanent pathology. Next, the transverse colon was identified. It was grasped and the omentum was dissected off the transverse colon and dissection continued laterally to include on to the splenic flexure. We continued our dissection on the splenic flexure to allow for adequate length. Once we obtained full mobilization of the splenic flexure again, the abdomen was copiously irrigated and suctioned due to the degree of small bowel dilatation and inflammation. We next performed an appendectomy as prophylactically. At this time, Dr. Chuck Ag scrubbed in to assist with the colorectal anastomosis. The EEA sizers were gently passed. Next, at this time, a 33-mm stapler was passed. The spike was supported to the staple line. The anvil was placed into the distal sigmoid colon. A pursestring suture was created. The anvil was then connected to the EEA stapler. The stapler was closed and held in place for approximately 2 minutes. The stapler was then fired and it was held in place an additional 2 minutes. The EEA stapler was removed. It was evaluated. There were 2 circumferential donuts noted in the specimen. The staple line was reinforced with interrupted 3-0 Vicryl suture and BioGlue. Hemostatic Ish powder was placed into the pelvis. The colon was then placed into the left lateral side wall. At this time, again, the abdomen was copiously irrigated and suctioned. Careful attention was paid to hemostasis. There was no evidence of bile leak. No evidence of bleeding. At this time, approximately 10-15 cm in the ileocecal junction a loop of small bowel was identified. A right lower quadrant incision was made. The dissection continued to the level of the anterior fascia. A cruciate incision was made. The muscles were gently split. The peritoneum was opened. The loop of distal small bowel was delivered through the abdominal wall. Two SALBADOR drains were then placed into the abdomen on the right and left side chavez and pelvis. The fascia was then closed with #1 looped PDS and skin was closed with marni. A diverting loop ileostomy was fashioned in the right lower quadrant. An enterotomy was made and the diverting loop colostomy was constructed in a standard Christy ileostomy fashion using 3-0 Vicryl suture. At the end of the case, all needle and instrument counts were correct. No complications occurred. The patient was extubated and transferred to the PACU in stable condition. OPERATIVE REPORT [id number] SINTIA MUHAMMADEST TRANSINT:[id number] Voice Confirmation ID: [id number] DOCUMENT ID: [id number] KIM SANTANA MD at 0758 CC: [id number] DICTATION DATE: 03/28/192011 FRAME STRIPPER AND CRUSHER: 03/29/19 0038 ADM IN [facility] [id number] [place] [address]
--- NOTE | 2019-03-29 08:37 | NUR ---
Nutrition follow-up: NPO ProcalAmine PPN stopped 03/28 NGT->LIWS +BM per surgery colostomy Wt: 180# Pt not meeting estimated nutritional needs at this time Recommend advancing diet or starting nutrition support within 24 hours RDN following.
--- NOTE | 2019-03-29 10:36 | NUR ---
report called to kaylie
--- NOTE | 2019-03-29 11:05 | NUR ---
RECEIVED TO ROOM 2230 VIA BED FROM ICU. A/O X3. DRESSING TO ABDOMEN IS CLEAN AND DRY. ILEOSTOMY PATENT. SALBADOR X2. LEFT IJ IN PLACE. SALBADOR X2 WITH SEROUS SANGUINESS DISCHARGE. NG TO RIGHT NARE PATENT WITH NO DISCHARGE AT THIS TIME, HOOKED UP TO LIS.
--- NOTE | 2019-03-29 12:55 | NUR ---
Nutrition consult: Received verbal order from Dr. Hwang in the IDT meeting to begin TPN today chart reviewed; spoke with pharmacy TPN, labs ordered RDN following.
--- NOTE | 2019-03-29 19:00 | NUR ---
BEDSIDE REPORT RECEIVED AND CARE OF PT ASSUMED. PT LYING IN SUPINE POSITION WITH EYES CLOSED. LEFT IJ PATENT WITH D5NS INFUSING AT 75 ML/HR; TPN INFUSING AT 50ML/HR; LIPIDS INFUSING AT 50 ML/HR, AND CONTROL SYSTEMS DESIGNER WITH DILAUDID AT 0.4/10/8 SETTINGS FOR PAIN CONTROL. TELEMETRY IN PLACE AND READING [address] AT THIS ASSESSMENT. ABDOMINAL INCISION WITH DRESSING INTACT. LLQ OSTOMY PATENT WITH SMALL AMOUNT OF BLOODY DRAINAGE IN BAG...STOMA PINK AND MOIST. SALBADOR DRAINS ON BOTH SIDES OF ABDOMEN WITH BLOODY DRAINAGE IN BULBS...BOTH WELL COMPRESSED. NOEL CATHETER DRAINING TO GRAVITY WITH YELLOW URINE IN COLLECTION BAG. WILL MONITOR FOR NEEDS.
[2019-03-29 19:16] LABS: HEMATOCRIT 41.4 % (42.0-54.0); HEMOGLOBIN 14.5 g/dL (13.5-17.5)
--- NOTE | 2019-03-29 20:30 | NUR ---
SCD'S PLACED ON BLE PER ORDER.
--- NOTE | 2019-03-29 21:13 | NUR ---
HS MEDICATIONS GIVEN. WILL CONTINUE TO MONITOR FOR NEEDS.
[2019-03-30 00:46] VITALS: BP 136/82
[2019-03-30 02:14] LABS: BASOPHILS 0.1 % (0-2); EOSINOPHILS 0.4 % (0-7); HEMATOCRIT 38.6 % (42.0-54.0); HEMOGLOBIN 13.6 g/dL (13.5-17.5); IMMATURE GRANULOCYTES 1.3 % (0-5); LYMPHOCYTES 5.4 % (15-50); MCH 32.5 pg (26.0-34.0); MCHC 35.2 g/dL (31.0-37.0); MCV 92.1 fL (80.0-100.0); MEAN PLATELET VOLUME 10.1 fL (7.4-10.4); MONOCYTES 3.1 % (2-11); NEUTROPHILS 89.7 % (40-80); PLATELET COUNT 251 10x3/uL (130-400); RDW 13.5 % (11.5-14.5)
[2019-03-30 02:18] LABS: RBC 4.19 10x6/uL (4.20-6.10); WBC 15.9 10x3/uL (4.8-10.8)
[2019-03-30 03:35] LABS: CALC OSMOLALITY 283 mosm/kg (275-300); CALCIUM 7.7 mg/dL (8.5-10.1); CHLORIDE - SERUM 105 mmol/L (98-107); GLUCOSE 195 mg/dL (74-106); SODIUM 138 mmol/L (136-145); UREA NITROGEN 20 mg/dL (7-18)
[2019-03-30 03:36] LABS: MAGNESIUM - SERUM 2.3 mg/dL (1.8-2.4)
[2019-03-30 03:37] LABS: CARBON DIOXIDE 23.4 mmol/L (21.0-32.0); CREATININE - SERUM 0.8 mg/dL (0.6-1.3); PHOSPHOROUS 1.4 mg/dL (2.5-4.9); POTASSIUM - SERUM 3.8 mmol/L (3.5-5.1); eGFR NON AFRICAN AMERICAN > 90 mL/min (90-120)
[2019-03-30 05:31] VITALS: BP 125/80
--- NOTE | 2019-03-30 07:20 | NUR ---
PT RESTING IN BED WITH EYES CLOSED, EASILY AROUSED TO SPEECH. NO S/S OF DISTRESS AT THIS TIME. IV LOCATED TO LEFT IJ RUNNING D5NS @ 75, TPN @ 50, DILAUDID PHARMACY SERVICES REPRESENTATIVE .. NG TUBE PRESENT TO RIGHT NOSTRIL SET TO LIS. NOEL PRESENT PUTTING OUT JULIOCESAR COLORED URINE. JPDRAIN PRESENT X 2, #1 TO RLQ, #2 TO LLQ. PT DENIES CURRENT NEEDS, BUT WILL CONT TO MONITOR.
--- NOTE | 2019-03-30 08:14 | NUR ---
Nutrition follow-up: Chart reviewed TPN formula adjusted RDN following
[2019-03-30 08:20] VITALS: BP 129/83
[2019-03-30 09:54] LABS: HEMATOCRIT 37.7 % (42.0-54.0); HEMOGLOBIN 13.2 g/dL (13.5-17.5)
--- NOTE | 2019-03-30 10:00 | NUR ---
PTS NG TUBE CURRENTLY NOT HAVING ANY OUTPUT, PT STATES IT WENT HRS YESTERDAY WITHOUT PUTTING ANYTHING OUT, WILL CONT TO MONITOR.
[2019-03-30 12:21] VITALS: BP 147/79
--- NOTE | 2019-03-30 14:00 | NUR ---
PTS NG TUBE STILL NOT HAVING ANY OUTPUT TODAY, SPOKE WITH KASEY KUMARI ABOUT IT. ORDERED XRAY TO CHECK FOR PLACEMENT. PT STATES HE IS FEELING "MORE FULL OF AIR" WILL CONT TO MONITOR.
--- NOTE | 2019-03-30 15:30 | NUR ---
PT COMPLAINING OF INCREASED "FULLNESS" IN STOMACH. NG TUBE STILL NOT HAVING ANY OUTPUT. INFORMED OF PT.S CONCERNS. SAYS HE WILL SEE HIM.
[2019-03-30 17:29] VITALS: BP 139/83
--- NOTE | 2019-03-30 17:35 | NUR ---
PT GROWING MORE UPSET AND CONCERNED ABOUT LACK OF OUTPUT IN NG TUBE AND PAIN. SPOKE WITH , HE SAID HE WOULD BE OVER HERE SOON HE COULD.
--- NOTE | 2019-03-30 19:00 | NUR ---
BEDSIDE REPORT RECEIVED AND CARE OF PT ASSUMED. PT LYING IN LOW WEATHERS'S POSITION VISITING WITH FAMILY MEMBER. LEFT IJ PATENT WITH D5NS INFUSING AT 75 ML/HR, TPN INFUSING AT 40 ML/HR, AND BEEF CATTLE FARMER W/ DILAUDID IN USE FOR PAIN CONTROL. SALBADOR DRAINS ON BOTH SIDES OF ABDOMEN WELL COMPRESSED WITH RED DRAINAGE IN BULBS. NOEL CATHETER DRAINING TO GRAVITY WITH JULIOCESAR URINE IN COLLECTION BAG. NG TUBE TO RIGHT NARE TO LIS WITH BROWN DRAINAGE IN COLLECTION CANNISTER. OSTOMY PINK AND MOIST WITH BLACK LIQUID IN COLLECTION BAG. TELEMETRY IN PLACE PER ORDER. WILL MONITOR FOR NEEDS.
[2019-03-30 19:20] LABS: HEMATOCRIT 36.9 % (42.0-54.0); HEMOGLOBIN 12.6 g/dL (13.5-17.5)
[2019-03-30 20:00] VITALS: BP 140/86
--- NOTE | 2019-03-30 20:10 | NUR ---
HS MEDICATIONS GIVEN TO INCLUDE 2 MG ATIVAN IVP PER ORDER FOR ANXIETY / SLEEP. WILL CONTINUE TO MONTIOR FOR NEEDS.
--- NOTE | 2019-03-30 22:36 | NUR ---
CHANGED CHEMISTRY MANAGER SETTINGS TO 0.2MG / 6 MIN / 8 MG LOCKOUT PER NEW ORDER WITH WITNESS. DOCUMENTED CHANGES IN CHEMISTRY MANAGER FLOWSHEET WITH WITNESS.
[2019-03-31] VITALS: BP 131/87
[2019-03-31 04:00] VITALS: BP 166/97
--- NOTE | 2019-03-31 04:32 | NUR ---
ILEOSTOMY APPLIANCE CAME OFF AND SOILED OTHER DRESSINGS ON ABDOMEN. CHANGED ALL DRESSINGS AND REPLACED APPLIANCE. PT CRIED AND YELLED OUT DURING DRESSING CHANGE DESPITE USING FINAL INSPECTOR MOVEMENT ASSEMBLY. LINEN AND GOWN CHANGED.
--- NOTE | 2019-03-31 04:35 | NUR ---
WHEN CHANGING OSTOMY APPLIANCE PT HAD ? ALLERGIC REACTION TO [place]KARE PROTECTIVE BARRIER WIPES...CAUSED BLISTERING OF THE SKIN IN A SMALL AREA WHEN FIRST APPLIED...IMMEDIATE REACTION AND PT REPORTED BURNING OF THAT AREA. WILL LIST AN ALLERGY AND PASS ALONG IN REPORT NOT TO USE ON PT.
--- NOTE | 2019-03-31 04:43 | NUR ---
GAVE HYDRALAZINE IVP FOR ELEVATED BLOOD PRESSURE OF 166/97 PER PRN ORDER.
[2019-03-31 05:35] LABS: BASOPHILS 0.2 % (0-2); IMMATURE GRANULOCYTES 0.4 % (0-5); LYMPHOCYTES 7.8 % (15-50); MCH 31.6 pg (26.0-34.0); MCHC 34.2 g/dL (31.0-37.0); MCV 92.2 fL (80.0-100.0); MEAN PLATELET VOLUME 10.1 fL (7.4-10.4); MONOCYTES 4.5 % (2-11); NEUTROPHILS 86.1 % (40-80); RBC 4.12 10x6/uL (4.20-6.10); RDW 13.5 % (11.5-14.5)
[2019-03-31 05:36] LABS: PLATELET COUNT 310 10x3/uL (130-400); WBC 11.5 10x3/uL (4.8-10.8)
[2019-03-31 05:49] LABS: CALC OSMOLALITY 285 mosm/kg (275-300); CALCIUM 8.3 mg/dL (8.5-10.1); CARBON DIOXIDE 27.7 mmol/L (21.0-32.0); CHLORIDE - SERUM 108 mmol/L (98-107); CREATININE - SERUM 0.7 mg/dL (0.6-1.3); MAGNESIUM - SERUM 1.9 mg/dL (1.8-2.4); POTASSIUM - SERUM 3.6 mmol/L (3.5-5.1); SODIUM 142 mmol/L (136-145); UREA NITROGEN 15 mg/dL (7-18); eGFR NON AFRICAN AMERICAN > 90 mL/min (90-120)
[2019-03-31 05:53] LABS: GLUCOSE 134 mg/dL (74-106); PHOSPHOROUS 1.9 mg/dL (2.5-4.9)
--- NOTE | 2019-03-31 08:00 | NUR ---
ALERT AND ORIENTED WITH N/G TUBE INTACT TO RT NARE WITH BROWN DRAINAGE NOTED SALBADOR DRAINS INTACT WITH SEROUS DRAINAGE NOTED. ILLEOSTOMY INTACT WITH BAG EMPTIED WELL SALBADOR DRAINS. LUNGS CTA WITH BOWEL SOUNDS HYPOACTIVE X4 AND GUARDED WITH ABDOMINAL DRESSINGS INTACT. DENIES ANY FLATULANCE AT THIS TIME. RPOSITIONED FOR COMFORT. IVF INFUSING AT PRESCRIBED RATE WITH PIECE WORK INSPECTOR DILAUDID AVAILABLE AT ORDERED DOSE. ENCOURAGED TO USE CALL LIGHT FOR ASSSIT. TELEMETRY INTACT.
[2019-03-31 08:40] VITALS: BP 143/93
[2019-03-31 10:26] LABS: HEMATOCRIT 37.3 % (42.0-54.0)
--- NOTE | 2019-03-31 11:12 | OP ---
PATIENT NAME: LI MUHAMMAD MEDICAL RECORD: [id number] :70 LOCATION:D[id number] ADMISSION DATE:03/22/19 SURGEON: NATHALIA GABRIEL MD DATE OF OPERATION: 03/28/2019 Assistance Note I assisted Dr. SASHA Bose with the sigmoid colectomy, mobilization of splenic flexure, appendectomy, diverting loop ileostomy, abdominal washout as well as a left IJ central venous line. I was only present for fraction of this operation. My entire involvement in the operation included going below and dilating the rectal pouch with the EEA sizers and then advancing the 33-mm EEA device and bringing the arrow out through the staple line. After Dr. Bose had connected it to the anvil. I then tightened down and fired, loosened up on the EEA device and then removed. I then disassembled the anvil removing it from the EEA device and identified that there were 2 intact doughnuts of tissue. That was my entire involvement in the operation. TRANSINT:[id number] Voice Confirmation ID: [id number] DOCUMENT ID: [id number] NATHALIA GABRIEL MD at 1112 CC: [id number] DICTATION DATE: 03/30/19 1858 SAWMILL HAND: 03/30/19 2346 ADM IN [id number] [place] [address]
[2019-03-31 13:22] VITALS: BP 130/82
[2019-03-31 16:46] VITALS: BP 144/91
[2019-03-31 18:41] LABS: HEMATOCRIT 35.9 % (42.0-54.0); HEMOGLOBIN 12.2 g/dL (13.5-17.5)
--- NOTE | 2019-03-31 19:00 | NUR ---
BEDSIDE REPORT RECEIVED AND CARE OF PT ASSUMED. PT LYING IN LOW WEATHERS'S POSITION VISITING WITH FRIEND. LEFT IJ PATENT WITH TPN INFUSING AT 40 ML/HR; D5NS INFUSING AT 75 AND MANAGER ADULT W/ DILAUDID IN USE FOR PAIN CONTROL. NG TUBE TO LIS WITH 400 ML OF DARK DRAINAGE IN COLLECTION CANNISTER. NOEL CATHETER DRAINING TO GRAVITY WITH JULIOCESAR URINE IN COLLECTION BAG. SALBADOR DRAINS X2 WELL COMPRESSED WITH BLOODY DRAINAGE IN BULBS. TELEMETRY IN PLACE. WILL MONITOR FOR NEEDS. CALL LIGHT WITHIN REACH.
[2019-03-31 20:11] VITALS: BP 132/82
--- NOTE | 2019-03-31 21:28 | NUR ---
HS MEDICATIONS GIVEN. SALBADOR DRAINS BOTH WELL COMPRESSED. NG TUBE TO RIGHT NARE PATENT TO LIS WITH 650 MLS DARK DRAINAGE IN COLLECTION CANNISTER. OSTOMY STOMA PINK AND MOIST WITH APPROX 50 MLS OF DARK DRAINAGE IN BAG. NOEL CATHETER DRAINING TO GRAVITY WITH JULIOCESAR URINE IN COLLECTION BAG...OUTPUT >50 MLS PER HOUR THIS SHIFT. DRESSINGS ON ABDOMEN CLEAN AND DRY.
--- NOTE | 2019-03-31 21:30 | NUR ---
RECEIVED CALL FROM FRIEND OF PT...PASSWORD CONFIRMED...SHE WANTED SPECIFICS OF HOW MUCH OUTPUT WAS IN HIS COLOSTOMY BAG AND NG EMILY.
--- NOTE | 2019-03-31 22:42 | NUR ---
ILEOSTOMY WITH 50 ML DARK DRAINAGE IN BAG. NG TUBE PATENT WITH APPROX 100 ML OUTPUT PER HOUR TO LIS. NOEL CATHETER DRAINING TO GRAVITY WITH JULIOCESAR URINE IN COLLECTION BAG. SALBADOR DRAINS WELL COMPRESSED WITH SMALL AMOUNT OF BLOODY DRAINAGE IN BULBS.
--- NOTE | 2019-03-31 23:00 | NUR ---
CHANGED DRESSING ON LEFT IJ USING STERILE TECHNIQUE. LABELED PER PROTOCAL WITH DATE, TIME AND INITIALS.
--- NOTE | 2019-04-01 00:04 | NUR ---
BLOOD PRESSURE 151/91 THIS CHECK...BELOW THE PARAMETERS OF THE PRN MEDICATION. WILL CONTINUE TO MONITOR AUBREY.
--- NOTE | 2019-04-01 00:15 | NUR ---
CHANGED NG SUCTION CANNISTER WITH 1000 ML DARK LIQUID. EMPTIED 30 ML BLOODY / DARK LIQUID FROM OSTOMY BAG. EMPTIED 35 ML TOTAL FROM SALBADOR DRAINS. GAVE PT ICE CHIPS PER REQUEST. NOEL CATHETER DRAINING TO GRAVITY WITH JULIOCESAR URINE IN COLLECTION BAG...MAINTAINING > 50 ML / HR OUTPUT.
[2019-04-01 00:52] VITALS: BP 151/91
--- NOTE | 2019-04-01 01:52 | NUR ---
STARTED ZOSYN EXTENDED INFUSION OVER 4 HOURS....PLACED ON IT'S OWN PUMP WITH A NS KVO SET UP SO TO NOT REDUCE THE MAINTENANCE FLUID HE IS GETTING 4 OUT OF EVERY 8 HOURS WHEN ZOSYN IS INFUSING.
[2019-04-01 05:19] VITALS: BP 138/83
[2019-04-01 05:50] LABS: BASOPHILS 0.2 % (0-2); EOSINOPHILS 0.6 % (0-7); HEMATOCRIT 35.8 % (42.0-54.0); HEMOGLOBIN 12.1 g/dL (13.5-17.5); IMMATURE GRANULOCYTES 0.4 % (0-5); LYMPHOCYTES 6.9 % (15-50); MCH 31.3 pg (26.0-34.0); MCHC 33.8 g/dL (31.0-37.0); MCV 92.7 fL (80.0-100.0); MEAN PLATELET VOLUME 9.8 fL (7.4-10.4); MONOCYTES 7.7 % (2-11); NEUTROPHILS 84.2 % (40-80); PLATELET COUNT 309 10x3/uL (130-400); RBC 3.86 10x6/uL (4.20-6.10); RDW 13.5 % (11.5-14.5); WBC 10.4 10x3/uL (4.8-10.8)
[2019-04-01 06:14] LABS: CALC OSMOLALITY 291 mosm/kg (275-300); CALCIUM 8.2 mg/dL (8.5-10.1); CARBON DIOXIDE 25.4 mmol/L (21.0-32.0); CHLORIDE - SERUM 110 mmol/L (98-107); CREATININE - SERUM 0.8 mg/dL (0.6-1.3); GLUCOSE 140 mg/dL (74-106); MAGNESIUM - SERUM 1.9 mg/dL (1.8-2.4); POTASSIUM - SERUM 3.5 mmol/L (3.5-5.1); SODIUM 145 mmol/L (136-145); UREA NITROGEN 15 mg/dL (7-18); eGFR NON AFRICAN AMERICAN > 90 mL/min (90-120)
[2019-04-01 06:18] LABS: PHOSPHOROUS 3.2 mg/dL (2.5-4.9)
--- NOTE | 2019-04-01 07:47 | NUR ---
ALERT AND ORIENTED. LUNGS CLEAR BILATERALLY. HEART SOUNDS S1 AND S2 HEARD IN ALL HAYNES. BOWEL SOUNDS HYPOACTIVE X 4. RIGHT SIDE OSTOMY PATENT. INCISION X 2 TO MID ABD COVERED WITH BORDERED GAUZE C/D/I. RIGHT SALBADOR PATENT. LEFT SALBADOR PATENT. NG TO RIGHT NARE PATENT HOOKED TO LOW INTERMITTENT SUCTION. LEFT IJ PATENT WITHOUT REDNESS. NOEL IN PLACE AND PATENT. DENIES NEEDS. BED LOW. CALL BAR AND PERSONAL ITEMS IN REACH. WILL CONTINUE TO MONITOR.
[2019-04-01 07:59] VITALS: BP 136/90
--- NOTE | 2019-04-01 08:40 | NUR ---
EDUCATION PROVIDED ON USE OF INCENTIVE SPIROMETER. DEMONSTRATED UNDERSTANDING. BROTHER IN ROOM AT BEDSIDE.
--- NOTE | 2019-04-01 09:44 | NUR ---
PATIENT USING INCENTIVE SPIROMETER.
--- NOTE | 2019-04-01 10:57 | NUR ---
2 UNITS PRBC ORDERED FOR PATIENT. PATIENT H/H 12.1/35.8. SPOKE WITH DR OBRIEN WHO ORDER WAS PLACED UNDER. STATES DID NOT PLACE ORDER AND NEED TO SPEAK WITH ATTENDING TO UT. NURSE METAL FURNITURE POLISHER PATRICIA NOTIFIED. WILL SPEAK WITH CRUSHER SETTER FOR DARON.
--- NOTE | 2019-04-01 11:30 | NUR ---
MARIELA LAUREANO CHANGED IN ROOM BY DR SANTANA. INCISION SITE WITHOUT REDNESS OR S/SX INFECTION. NOEL REMOVED PER ORDER WITHOUT DIFFICULTY. URINAL GIVEN TO PATIENT. N/O FOR TORADOL AND OFIRMEV. PATIENT DOING INCENTIVE SPIROMETER AGAIN IN ROOM. EDUCATION PROVIDED TO USE ON COMMERCIAL BREAKS. DEMONSTRATED AND VERBALIZED UNDERSTANDING.
--- NOTE | 2019-04-01 11:31 | NUR ---
TELEMETRY REMOVED AND RETURNED TO [facility] AT MONITORS PER DR SANTANA.
--- NOTE | 2019-04-01 11:33 | NUR ---
PATIENT REQUESTING DR SANTANA CALL GREYSON HERMOSILLO. DR SANTANA NOTIFIED AND STATES WILL CALL. DR SANTANA ALSO NOTIFIED OF ORDER FOR BLOOD. STATES WILL CANCEL.
--- NOTE | 2019-04-01 12:30 | NUR ---
STATES FEELING BETTER AFTER OFIRMEV AND TORADOL. PAIN DECREASED TO 4/10. REQUESTED AND GIVEN ICE CHIPS. BROTHER AT BEDSIDE.
[2019-04-01 12:50] VITALS: BP 144/83
--- NOTE | 2019-04-01 14:20 | NUR ---
ASSISTED TO CHAIR. 150ML EMPTIED FROM OSTOMY. 900ML IN COLLECTION CHAMBER FOR NG TUBE. CONTAINER REPLACED. REQUESTED AND GIVEN WET WASH CLOTH. DENIES FURTHER NEEDS.
--- NOTE | 2019-04-01 14:57 | NUR ---
Information booklet on understanding ostomies provided for patient. Will return for any questions and demonstrate how to remove and apply appliance.
--- NOTE | 2019-04-01 15:27 | NUR ---
Nutrition follow-up: TPN @ 40 ml/hr labs reviewed Will watch PO4 closely RDN following.
--- NOTE | 2019-04-01 16:05 | NUR ---
RESTING IN BED. DENIES NEEDS. WILL CONTINUE TO MONITOR.
--- NOTE | 2019-04-01 19:01 | NUR ---
RESTING IN BED. DENIES NEEDS. BED LOW. CALL BAR AND PERSONAL ITEMS IN REACH.
--- NOTE | 2019-04-01 20:00 | NUR ---
ASSESSMENT PER FLOWSHEET. IV PATENT LEFT IJ WITH TPN AT 40CC'S/HR. IV FLUIDS OF D5NS AT 50CC'S/HR. JOINTER OPERATOR DILAUDID IN USE WITH SETTINGS AT 0.2MG Q6MIN W/8MG Q4HR L/O.ABD. INCISION C/D/I WITH RT AND LEFT SALBADOR DRAINS NOTED.
[2019-04-01 20:42] VITALS: BP 133/85
--- NOTE | 2019-04-01 21:30 | NUR ---
MEDS PER MAR.
--- NOTE | 2019-04-02 00:15 | NUR ---
TXJG=[id number]. NO COVERAGE.
[2019-04-02 01:06] VITALS: BP 140/20
--- NOTE | 2019-04-02 03:30 | NUR ---
VOIDED IN URINAL DARK JULIOCESAR COLORED URINE.NGT TO RT NARE CONNECTED TO LIWS.
[2019-04-02 04:47] LABS: BASOPHILS 0.2 % (0-2); EOSINOPHILS 0.9 % (0-7); HEMATOCRIT 34.6 % (42.0-54.0); HEMOGLOBIN 11.6 g/dL (13.5-17.5); IMMATURE GRANULOCYTES 0.4 % (0-5); LYMPHOCYTES 7.4 % (15-50); MCH 31.4 pg (26.0-34.0); MCHC 33.5 g/dL (31.0-37.0); MCV 93.5 fL (80.0-100.0); MEAN PLATELET VOLUME 9.6 fL (7.4-10.4); MONOCYTES 6.6 % (2-11); NEUTROPHILS 84.5 % (40-80); PLATELET COUNT 316 10x3/uL (130-400); RDW 13.6 % (11.5-14.5); WBC 11.1 10x3/uL (4.8-10.8)
[2019-04-02 04:49] VITALS: BP 145/80
[2019-04-02 05:08] LABS: CALC OSMOLALITY 288 mosm/kg (275-300); CALCIUM 8.1 mg/dL (8.5-10.1); CARBON DIOXIDE 27.3 mmol/L (21.0-32.0); CHLORIDE - SERUM 109 mmol/L (98-107); CREATININE - SERUM 0.8 mg/dL (0.6-1.3); GLUCOSE 129 mg/dL (74-106); MAGNESIUM - SERUM 1.8 mg/dL (1.8-2.4); PHOSPHOROUS 3.1 mg/dL (2.5-4.9); POTASSIUM - SERUM 3.3 mmol/L (3.5-5.1); SODIUM 143 mmol/L (136-145); UREA NITROGEN 17 mg/dL (7-18); eGFR NON AFRICAN AMERICAN > 90 mL/min (90-120)
--- NOTE | 2019-04-02 07:28 | NUR ---
ALERT AND ORIENTED. LUNGS CLEAR BILATERALLY. USING INCENTIVE SPIROMETER. HEART SOUNDS S1 AND S2 HEARD IN ALL HAYNES. BOWEL SOUNDS HYPOACTIVE X 4. RIGHT SIDE OSTOMY PATENT. RIGHT AND LEFT SALBADOR DRAIN PATENT WITH VERY SMALL AMOUNT OF OUTPUT IN BULBS. NG TUBE HOOKED TO LOW INTERMITTENT SUCTION WITH 400ML NOTED TO CANISTER. LEFT IJ PATENT WITHOUT REDNESS. DENIES NEEDS. BED LOW. CALL BAR AND PERSONAL ITEMS IN REACH. WILL CONTINUE TO MONITOR.
[2019-04-02 09:05] VITALS: BP 137/81
--- NOTE | 2019-04-02 09:25 | NUR ---
SUCTION CANISTER CHANGED. 900ML NOTED TO CANISTER.
--- NOTE | 2019-04-02 10:54 | NUR ---
EDUCATION PROVIDED ON MD ORDER TO REMOVE NG TUBE AND REMOVE LEFT SALBADOR DRAIN. VERBALIZED UNDERSTANDING. N/O CLEAR LIQUID DIET. CHICKEN BROTH AND ICE WATER GIVEN. NG TUBE TURNED OFF. MILK OF MAG GIVEN PER ORDER. EDUCATION PROVIDED TO INTRODUCE LIQUIDS SLOWLY WITH SIPS. VERBALIZED UNDERSTANDING. NG CLAMPED. SUZANNE RUBBER THREAD SPOOLER IN ROOM PROVIDED EDUCATION ON OSTOMY. WILL REMOVE LEFT SALBADOR.
--- NOTE | 2019-04-02 11:29 | NUR ---
LEFT SALBADOR DRAIN DISCONTINUED PER ORDER.
--- NOTE | 2019-04-02 12:14 | NUR ---
Information provided about ostomy. Discussed the stoma, skin care of stoma and peristomal skin, skin prep for placing a wafer, bag attachment. We discussed when to change the appliance, how to measure stoma for proper placement. Pt was provided printed informational packet yesterday, but stated he had not read it yet. Encouraged him to look through it, writing down any questions and we will reinforce teaching tomorrow. He voiced understanding.
--- NOTE | 2019-04-02 12:26 | NUR ---
Nutrition follow-up: Diet advanced to clear liquids NGT clamped Labs reviewed Wt: 186# RDN will wait until tomorrow to increase TPN now that diet has started. May be able to discontinue TPN soon. RDN following.
[2019-04-02 12:54] VITALS: BP 131/79
--- NOTE | 2019-04-02 14:02 | NUR ---
PATIENT STATES FEELING BLOATED BUT NOT NAUSEAS. NO GAS NOTED IN OSTOMY BAG. 25ML LIQUID STOOL EMPTIED FROM BAG. DR SANTANA PAGED TO MAKE SURE WANTS NG TUBE PULLED PRIOR TO REMOVING. WAITING CALL BACK.
--- NOTE | 2019-04-02 14:23 | NUR ---
NG TUBE REMOVED FROM RIGHT NARE PER ORDER.
--- NOTE | 2019-04-02 15:10 | NUR ---
PATIENT WALKED AROUND NURSES STATION WITH PT. UP IN CHAIR AT BEDSIDE. STATES NO NAUSEA AT THIS TIME.
[2019-04-02 17:22] VITALS: BP 120/75
--- NOTE | 2019-04-02 18:53 | NUR ---
RESTING IN BED. DENIES NEEDS. BED LOW. CALL BAR AND PERSONAL ITEMS IN REACH.
--- NOTE | 2019-04-02 20:00 | NUR ---
ASSESSMENT PER FLOWSHEET. IV PATENT LEFT IJ OF LIPIDS AT 30CC'S/HR TPN AT 40CC'S/HR AND LR AT 50CC'S/HR. DRIVING SCHOOL INSTRUCTOR OF DILAUDID IN USE WITH SETTINGS AT 0.2MG Q6MIN W/8MG Q4HR L/O. MIDLINE INCISION C/D/I. RT SALBADOR DRAIN IN PLACE AND COMPRESSED.
[2019-04-02 20:31] VITALS: BP 139/84
--- NOTE | 2019-04-02 21:30 | NUR ---
MEDS PER JUL. EMPTIED 350CC'S DARK GREEN/BROWN LIQUID FECES FOR COLOSTOMY BAG.
--- NOTE | 2019-04-03 00:10 | NUR ---
MGTX=[id number]. NO COVERAGE.
[2019-04-03 00:22] VITALS: BP 128/82
--- NOTE | 2019-04-03 03:00 | NUR ---
MEDS GIVEN PER JUL. RESTING QUIETLY .
[2019-04-03 03:58] VITALS: BP 152/97
--- NOTE | 2019-04-03 05:43 | NUR ---
NO CHANGES IN ASSESSMENT.
[2019-04-03 06:27] LABS: BASOPHILS 0.1 % (0-2); EOSINOPHILS 0.5 % (0-7); HEMATOCRIT 38.3 % (42.0-54.0); IMMATURE GRANULOCYTES 0.7 % (0-5); MCH 31.9 pg (26.0-34.0); MCHC 33.9 g/dL (31.0-37.0); MCV 93.9 fL (80.0-100.0); MEAN PLATELET VOLUME 10.4 fL (7.4-10.4); MONOCYTES 4.4 % (2-11); NEUTROPHILS 91.3 % (40-80); RBC 4.08 10x6/uL (4.20-6.10); RDW 13.8 % (11.5-14.5)
[2019-04-03 06:31] LABS: CALC OSMOLALITY 280 mosm/kg (275-300); CALCIUM 7.9 mg/dL (8.5-10.1); CARBON DIOXIDE 28.2 mmol/L (21.0-32.0); CHLORIDE - SERUM 104 mmol/L (98-107); CREATININE - SERUM 0.6 mg/dL (0.6-1.3); GLUCOSE 112 mg/dL (74-106); MAGNESIUM - SERUM 2.1 mg/dL (1.8-2.4); PHOSPHOROUS 3.5 mg/dL (2.5-4.9); POTASSIUM - SERUM 3.6 mmol/L (3.5-5.1); SODIUM 140 mmol/L (136-145); UREA NITROGEN 15 mg/dL (7-18); eGFR NON AFRICAN AMERICAN > 90 mL/min (90-120)
[2019-04-03 06:32] LABS: PLATELET COUNT 394 10x3/uL (130-400); WBC 17.7 10x3/uL (4.8-10.8)
--- NOTE | 2019-04-03 07:40 | NUR ---
PT RESTING IN BED WITH EYES CLOSED. HOB ELEVATED. OPENS EYES UPON STAFF SPEAKING TO. PT REPORTS PAIN 6/10, WITH NAUSEA. LEFT IJ INTACT WITH TPN @ 40ML/HR, LR @ 50ML/HR BOTH INFUSING VIA PUMP. SITE WITHOUT REDNESS OR EDEMA. MIDLINE INCISION WITH DRESSING INTACT. NICKEL SIZED SPOT OF RED DRAINAGE NOTED. SALBADOR INTACT TO RIGHT QUAD WITH SCANT AMOUNT OF BLOODY DRAINAGE. ILEOSTOMY INTACT, STOMA PINK WITH DARK GREEN DRAINAGE NOTED. CL WITHIN REACH. ENCOURAGED TO CALL WITH NEEDS. CONTINUE POC
--- NOTE | 2019-04-03 08:36 | NUR ---
Nutrition follow-up: Diet advanced to full liquids NGT removed TPN tapered and discontinued Labs reviewed RDN following.
--- NOTE | 2019-04-03 08:50 | NUR ---
AT PT BEDSIDE. PT CONTINUES TO VOICE NAUSEA. PT VOMITED APPROXIMATELY 300ML ML OF DARK GREEN AND BROWN EMESIS. AFTERWORDS PT VOICES "I ACTUALLY FEEL BETTER NOW." ZOFRAN ADMINISTERED AT THIS TIME.
--- NOTE | 2019-04-03 08:52 | NUR ---
DR SANTANA NOTIFIED OF PT WITH EMESIS APPROX 300 CC DRAK GREENISH BROWN
[2019-04-03 09:13] VITALS: BP 132/85
[2019-04-03 12:26] VITALS: BP 147/96
[2019-04-03 16:22] VITALS: BP 137/85
[2019-04-03 19:30] VITALS: BP 120/77
--- NOTE | 2019-04-04 00:27 | NUR ---
REFUSED IN OUT CATH DID CLEAN CATCH.
[2019-04-04 00:30] VITALS: BP 121/74
--- NOTE | 2019-04-04 03:04 | NUR ---
PATIENT RESTING IN BED. ORDERS FOR NPO BUT SIPPING WATER. IV IS LEFT IJ WITH LR AT 50ML/HR. NG TUB IN PLACE TO RIGHT ARIAS WITH INTERMINTEN SUCTION HAS HAD OVER 1500 ML OUT AT THIS TIME. ILEOSTOMY IN PLACE WITH GREEN WATERY STOOL OUT. SCD 'S IN PLACE. CALL LIGHT IN REACH BED LOW CALL LIGHT IN REACH.
[2019-04-04 04:30] VITALS: BP 119/64
[2019-04-04 07:06] LABS: CALCIUM 8.5 mg/dL (8.5-10.1); CARBON DIOXIDE 23.8 mmol/L (21.0-32.0); GLUCOSE 90 mg/dL (74-106); MAGNESIUM - SERUM 2.5 mg/dL (1.8-2.4); PHOSPHOROUS 3.9 mg/dL (2.5-4.9)
[2019-04-04 07:32] LABS: UREA NITROGEN 24 mg/dL (7-18)
[2019-04-04 07:33] LABS: CALC OSMOLALITY 284 mosm/kg (275-300); CHLORIDE - SERUM 106 mmol/L (98-107); CREATININE - SERUM 0.9 mg/dL (0.6-1.3); POTASSIUM - SERUM 3.3 mmol/L (3.5-5.1); SODIUM 141 mmol/L (136-145); eGFR NON AFRICAN AMERICAN > 90 mL/min (90-120)
--- NOTE | 2019-04-04 07:33 | NUR ---
patient refused to use Incentive spirometer this shift. Did not get up did sit up on side of bed and brush teeth. drinking water even though he was to be npo.
[2019-04-04 07:35] LABS: MCH 31.3 pg (26.0-34.0); MCHC 33.3 g/dL (31.0-37.0); MCV 93.8 fL (80.0-100.0); MEAN PLATELET VOLUME 10.7 fL (7.4-10.4); PLATELET COUNT 499 10x3/uL (130-400); RBC 3.84 10x6/uL (4.20-6.10); RDW 13.8 % (11.5-14.5); WBC 20.7 10x3/uL (4.8-10.8)
--- NOTE | 2019-04-04 08:00 | NUR ---
CHANGED MIDLINE DRESSING AND THE COLOSTOMY. COLOSTOMY BEGAN TO LEAK FROM THE RIGHT BOTTOM CORNER IS THE REASON I CHANGED IT. BED PAD CHANGED WELL. CALL LIGHT IN REACH. TM.
[2019-04-04 09:02] VITALS: BP 132/81
[2019-04-04 10:12] LABS: ANISOCYTOSIS OCC; BASOPHILS 1 % (0-2); EOSINOPHILS 1 % (0-7); LYMPHOCYTES 6 % (15-50); MONOCYTES 7 % (2-11); NEUTROPHILS 77 % (40-80); PLATELET ESTIMATE INCREASED
--- NOTE | 2019-04-04 10:45 | NUR ---
DR SANTANA SAID ICE CHIPS AND POPSICLES WERE FINE. GRAPE POPSICLE AND ICE CHIPS PROVIDED. CL IN REACH. TM
[2019-04-04 13:07] VITALS: BP 131/78
--- NOTE | 2019-04-04 15:49 | NUR ---
CENTRAL LINE DRESSING CHANGED. STERILE TECHNIQUE CONTINUED THROUGHOUT. PATIENT TOLERATED WELL. CL IN REACH. WCTM
[2019-04-04 16:45] VITALS: BP 172/65
[2019-04-04 19:30] VITALS: BP 128/76
[2019-04-05] VITALS: BP 139/76
[2019-04-05 04:00] VITALS: BP 122/73
[2019-04-05 05:47] LABS: BASOPHILS 0.1 % (0-2); EOSINOPHILS 0.7 % (0-7); HEMATOCRIT 31.9 % (42.0-54.0); HEMOGLOBIN 10.6 g/dL (13.5-17.5); IMMATURE GRANULOCYTES 0.5 % (0-5); LYMPHOCYTES 6.2 % (15-50); MCH 31.3 pg (26.0-34.0); MCHC 33.2 g/dL (31.0-37.0); MCV 94.1 fL (80.0-100.0); MEAN PLATELET VOLUME 10.2 fL (7.4-10.4); MONOCYTES 4.8 % (2-11); NEUTROPHILS 87.7 % (40-80); PLATELET COUNT 508 10x3/uL (130-400); RBC 3.39 10x6/uL (4.20-6.10); RDW 13.7 % (11.5-14.5)
[2019-04-05 06:03] LABS: WBC 14.9 10x3/uL (4.8-10.8)
[2019-04-05 06:14] LABS: CALC OSMOLALITY 291 mosm/kg (275-300); CALCIUM 7.6 mg/dL (8.5-10.1); CARBON DIOXIDE 24.8 mmol/L (21.0-32.0); CHLORIDE - SERUM 113 mmol/L (98-107); CREATININE - SERUM 0.7 mg/dL (0.6-1.3); GLUCOSE 104 mg/dL (74-106); MAGNESIUM - SERUM 2.2 mg/dL (1.8-2.4); SODIUM 145 mmol/L (136-145); UREA NITROGEN 20 mg/dL (7-18); eGFR NON AFRICAN AMERICAN > 90 mL/min (90-120)
[2019-04-05 06:23] LABS: PHOSPHOROUS 2.9 mg/dL (2.5-4.9); POTASSIUM - SERUM 4.1 mmol/L (3.5-5.1)
[2019-04-05 08:07] VITALS: BP 139/79
--- NOTE | 2019-04-05 08:25 | NUR ---
NG TUBE CLAMPED PER DR BRUNNER INSTRUCTIONS
--- NOTE | 2019-04-05 12:34 | NUR ---
NUTRITION F/U PT NOW NPO XCEPT ICE CHIPS AND POPSICLES. IF UNABLE TO ADVANCE DIET, MAY NEED TO RESUME NUTRITION SUPPORT. WILL CONTINUE TO MONITOR PT PROGRESS AND DIET ADVANCEMENT. RD FOLLOWING
[2019-04-05 12:58] VITALS: BP 124/77
--- NOTE | 2019-04-05 14:59 | NUR ---
SALBADOR DRAIN REMOVED. STICHES REMOVED TOLERATED WELL
--- NOTE | 2019-04-05 15:00 | NUR ---
NG TUBE UNCLAMPED PLACED BACK ON LIS. CL IN REACH. NO FURTHER NEEDS AT THIS TIME
[2019-04-05 17:43] VITALS: BP 125/76
[2019-04-05 20:00] VITALS: BP 130/76
[2019-04-06] VITALS: BP 121/72
[2019-04-06 04:00] VITALS: BP 112/71
[2019-04-06 06:36] LABS: BASOPHILS 0.2 % (0-2); EOSINOPHILS 0.9 % (0-7); HEMOGLOBIN 10.4 g/dL (13.5-17.5); IMMATURE GRANULOCYTES 0.3 % (0-5); LYMPHOCYTES 7.4 % (15-50); MCH 31.5 pg (26.0-34.0); MCHC 33.5 g/dL (31.0-37.0); MCV 93.9 fL (80.0-100.0); MEAN PLATELET VOLUME 10.4 fL (7.4-10.4); MONOCYTES 5.8 % (2-11); NEUTROPHILS 85.4 % (40-80); PLATELET COUNT 558 10x3/uL (130-400); RDW 13.5 % (11.5-14.5); WBC 12.7 10x3/uL (4.8-10.8)
[2019-04-06 06:51] LABS: CALC OSMOLALITY 287 mosm/kg (275-300); CARBON DIOXIDE 23.3 mmol/L (21.0-32.0); CHLORIDE - SERUM 113 mmol/L (98-107); CREATININE - SERUM 0.7 mg/dL (0.6-1.3); GLUCOSE 106 mg/dL (74-106); PHOSPHOROUS 3.2 mg/dL (2.5-4.9); POTASSIUM - SERUM 3.7 mmol/L (3.5-5.1); SODIUM 144 mmol/L (136-145); UREA NITROGEN 16 mg/dL (7-18); eGFR NON AFRICAN AMERICAN > 90 mL/min (90-120)
[2019-04-06 08:45] VITALS: BP 120/63
--- NOTE | 2019-04-06 09:00 | NUR ---
NG TO RIGHT NARE CLAMPED AT THIS TIME.
--- NOTE | 2019-04-06 11:12 | NUR ---
CONTINUES WITHOUT C/O NAUSEA.
[2019-04-06 12:32] VITALS: BP 107/74
--- NOTE | 2019-04-06 14:00 | NUR ---
UP TO BR WITH MIN ASSIST TO SHOWER. DID WELL WITH ACTIVITY. NO NAUSEA. DENIES NEEDS. DRESSING TO ABDOMEN CHANGED AFTER SHOWER.
[2019-04-06 16:43] VITALS: BP 130/80
--- NOTE | 2019-04-06 18:15 | NUR ---
RESTING QUIETLY IN BED. STATED HE DIDN'T WANT TO DRINK ANYTHING BECAUSE HE WAS AFRAID HIS STOMACH WOULD HURT. ENCOURAGED TO DRINK SMALL SIPS SO THAT WHEN THE ORDER COMES TO D/C NG HE WILL KNOW HE CAN TOLERATE LIQUIDS WITHOUT NAUSEA. GIVEN FRESH ICE WATER. DENIES NEEDS. NO CHANGES NOTED.
--- NOTE | 2019-04-06 19:26 | NUR ---
PATIENT RESTING IN BED WITH GUESTS AT BEDSIDE AND DENIES NEEDS AT THIS TIME. NGT TO R NARE CLAMPED. PATIENT DENIES NAUSEA AT THIS TIME. NO S/S OF DISTRESS. BED IN LOWEST POSITION AND CALL LIGHT WITHIN REACH. ENCOURAGED THE PATIENT TO CALL IF HE HAS NEEDS. WILL CONTINUE TO MONITOR.
[2019-04-06 19:57] VITALS: BP 131/77
--- NOTE | 2019-04-06 22:26 | NUR ---
PATIENT RESTING IN BED WITH NO S/S OF DISTRESS. PATIENT DENIES NEEDS AT THIS TIME. BED IN LOWEST POSITION AND CALL LIGHT WITHIN REACH. ENCOURAGED THE PATIENT TO CALL IF HE HAS NEEDS.
--- NOTE | 2019-04-06 23:23 | NUR ---
EMPTIED 400 ML FROM PATIENT'S OSTOMY BAG
[2019-04-07] VITALS: BP 124/78
[2019-04-07 04:00] VITALS: BP 115/73
[2019-04-07 06:36] LABS: BASOPHILS 0.2 % (0-2); EOSINOPHILS 1.1 % (0-7); HEMOGLOBIN 10.6 g/dL (13.5-17.5); IMMATURE GRANULOCYTES 0.2 % (0-5); LYMPHOCYTES 10.1 % (15-50); MCH 31.1 pg (26.0-34.0); MCHC 33.1 g/dL (31.0-37.0); MCV 93.8 fL (80.0-100.0); MEAN PLATELET VOLUME 10.5 fL (7.4-10.4); MONOCYTES 6.1 % (2-11); NEUTROPHILS 82.3 % (40-80); PLATELET COUNT 638 10x3/uL (130-400); RBC 3.41 10x6/uL (4.20-6.10); RDW 13.6 % (11.5-14.5); WBC 12.7 10x3/uL (4.8-10.8)
[2019-04-07 07:21] LABS: CALC OSMOLALITY 276 mosm/kg (275-300); CALCIUM 7.9 mg/dL (8.5-10.1); CARBON DIOXIDE 22.4 mmol/L (21.0-32.0); CHLORIDE - SERUM 108 mmol/L (98-107); CREATININE - SERUM 0.7 mg/dL (0.6-1.3); GLUCOSE 98 mg/dL (74-106); MAGNESIUM - SERUM 1.9 mg/dL (1.8-2.4); PHOSPHOROUS 3.1 mg/dL (2.5-4.9); POTASSIUM - SERUM 3.5 mmol/L (3.5-5.1); SODIUM 139 mmol/L (136-145); VANCOMYCIN - TROUGH 19.3 ug/mL (10.0-20.0); eGFR NON AFRICAN AMERICAN > 90 mL/min (90-120)
[2019-04-07 07:22] LABS: UREA NITROGEN 10 mg/dL (7-18)
--- NOTE | 2019-04-07 07:44 | NUR ---
AWAKE AND ALERT. ORIENTED X3. NO C/O AT THIS TIME. LUNGS ARE CLEAR BILATERALLY, NO COUGH NOTED. SKIN IS INTACT WITHOUT REDNESS EXCEPT INCISION TO MID ABDOMEN WHICH HAS A DRY INTACT DRESSING IN PLACE. LEFT IJ IS PATENT WTIHOUT REDNESS AT INSERTION SITE. ILEOSTOMY IS PATENT WITH GREENISH LIQUID STOOL. DENIES NEEDS.
[2019-04-07 07:59] VITALS: BP 128/75
--- NOTE | 2019-04-07 11:00 | NUR ---
AMBULATED 500 FEET WITH PT IN HALLWAY. SLIGHTLY INCREASED PAIN WITH ACTIVITY BUT EASED WHEN AT REST.
[2019-04-07 11:39] VITALS: BP 123/72
[2019-04-07 16:31] VITALS: BP 127/81
--- NOTE | 2019-04-07 17:40 | NUR ---
OSTOMY SEAL BROKEN. APPLIANCE CHANGED PER STAFF. DENIES NEEDS. NO CHANGES NOTED.
--- NOTE | 2019-04-07 19:10 | NUR ---
PATIENT RESTING IN BED WITH NO S/S OF DISTRESS. EMPTIED PATIENT'S OSTOMY BAG. PATIENT DENIES OTHER NEEDS AT THIS TIME. BED IN LOWEST POSITION AND CALL LIGHT WITHIN REACH. ENCOURAGED THE PATIENT TO CALL IF HE HAS NEEDS. WILL CONTINUE TO MONITOR.
[2019-04-07 20:00] VITALS: BP 134/79
[2019-04-08] VITALS: BP 116/71
[2019-04-08 04:00] VITALS: BP 117/67
[2019-04-08 06:04] LABS: BASOPHILS 0.2 % (0-2); EOSINOPHILS 1.2 % (0-7); HEMATOCRIT 33.4 % (42.0-54.0); HEMOGLOBIN 11.1 g/dL (13.5-17.5); IMMATURE GRANULOCYTES 0.5 % (0-5); LYMPHOCYTES 6.7 % (15-50); MCH 30.9 pg (26.0-34.0); MCHC 33.2 g/dL (31.0-37.0); MEAN PLATELET VOLUME 10.5 fL (7.4-10.4); MONOCYTES 5.5 % (2-11); NEUTROPHILS 85.9 % (40-80); PLATELET COUNT 711 10x3/uL (130-400); RBC 3.59 10x6/uL (4.20-6.10); RDW 13.3 % (11.5-14.5); WBC 13.3 10x3/uL (4.8-10.8)
[2019-04-08 06:23] LABS: CALC OSMOLALITY 278 mosm/kg (275-300); CALCIUM 8.4 mg/dL (8.5-10.1); CARBON DIOXIDE 22.8 mmol/L (21.0-32.0); CHLORIDE - SERUM 107 mmol/L (98-107); CREATININE - SERUM 0.7 mg/dL (0.6-1.3); GLUCOSE 119 mg/dL (74-106); PHOSPHOROUS 3.6 mg/dL (2.5-4.9); POTASSIUM - SERUM 3.6 mmol/L (3.5-5.1); SODIUM 140 mmol/L (136-145); UREA NITROGEN 10 mg/dL (7-18); eGFR NON AFRICAN AMERICAN > 90 mL/min (90-120)
--- NOTE | 2019-04-08 06:50 | NUR ---
RESTING IN BED, EYES CLOSED. RESPIRATIONS EVEN AND UNLABORED. POD #11 ILEOSTOMY. MIDLINE INCISION, DRESSING C/D/I. NG TUBE TO RIGHT NARE. LEFT IJ, D5 LR WITH 10K+ INFUSING @ 150ML/HR. SITE PATENT WITHOUT REDNESS OR SWELLING. NO C/O PAIN. NO S/S OF ACUTE DISTRESS NOTED. CALL LIGHT IN REACH. DENIES ANY NEEDS. WILL CONTINUE TO MONITOR.
[2019-04-08 08:21] VITALS: BP 119/75
[2019-04-08 09:31] LABS: AMORPHOUS SEDIMENT >1+ /lpf (NONE SEEN); APPEARANCE CLOUDY (CLEAR); BACTERIA FEW /hpf (NEGATIVE); BILIRUBIN NEGATIVE (NEGATIVE); COLOR YELLOW (YELLOW); EPITHELIAL CELLS RARE /hpf (0-5); GLUCOSE NEGATIVE (NEGATIVE); KETONE NEGATIVE (NEGATIVE); MUCUS <1+ /lpf (NONE SEEN); NITRITE NEGATIVE (NEGATIVE); PROTEIN NEGATIVE (NEGATIVE); RED CELLS - URINE OCC /hpf (0-5); SPECIFIC GRAVITY 1.025 (1.005-1.020); UROBILINOGEN NORMAL (NORMAL); WHITE CELLS - URINE NSEEN /hpf (NEGATIVE)
--- NOTE | 2019-04-08 09:41 | NUR ---
I have reviewed this patient and I concur with the Shift Assessment completed by the Licensed Practical Nurse today this shift.
[2019-04-08 13:15] VITALS: BP 115/75
--- NOTE | 2019-04-08 13:51 | NUR ---
Nutrition follow-up: Pt on clear liquid diet NGT clamped Labs reviewed Wt: 186# Recommend starting ProcalAmine PPN @ 125 ml/hr RDN following.
[2019-04-08 16:19] VITALS: BP 132/77
--- NOTE | 2019-04-08 18:44 | NUR ---
ALERT AND ORIENTED, RESTING IN BED. REMOVED NG TUBE TO RIGHT NARE. GAVE ZOFRAN. NO C/O PAIN. NO S/S OF ACUTE DISTRESS NOTED. DENIES ANY NEEDS AT THIS TIME. CALL LIGHT IN REACH. WILL CONTINUE TO MONITOR.
--- NOTE | 2019-04-08 20:00 | NUR ---
ASSESSMENT PER FLOWSHEET. IV PATENT LEFT IJ OF D5LR W/20MEQ KCL INFUSING AT 75CC'S/HR SITE CLEAR. VOIDS IN URINAL RT ILEOSTOMY EMPTIED WITH 350CC'S DARK COLORED WATER. MIDLINE INCISION DRSG C/D/I. PACKING NOTED TO 2 SMALL OPEN HOLES. DRSG TO SITE. SCD'S ON. SR UP X2 CALL LIGHT WITHIN REACH.
[2019-04-08 20:53] VITALS: BP 129/73
--- NOTE | 2019-04-08 22:00 | NUR ---
MEDS PER MAR.
--- NOTE | 2019-04-09 | NUR ---
AWAKE WATCHING TV.
[2019-04-09 01:15] VITALS: BP 120/78
--- NOTE | 2019-04-09 02:15 | NUR ---
AWAKE PATIENT REQUESTING ANXIETY PILL. ATIVAN 1MG PO GIVEN FOR ANXIETY.
[2019-04-09 04:44] VITALS: BP 144/56
[2019-04-09 06:40] LABS: CALC OSMOLALITY 270 mosm/kg (275-300); CALCIUM 8.2 mg/dL (8.5-10.1); CARBON DIOXIDE 23.9 mmol/L (21.0-32.0); CHLORIDE - SERUM 103 mmol/L (98-107); CREATININE - SERUM 0.7 mg/dL (0.6-1.3); GLUCOSE 93 mg/dL (74-106); MAGNESIUM - SERUM 1.7 mg/dL (1.8-2.4); PHOSPHOROUS 3.3 mg/dL (2.5-4.9); POTASSIUM - SERUM 3.8 mmol/L (3.5-5.1); SODIUM 136 mmol/L (136-145); UREA NITROGEN 10 mg/dL (7-18); VANCOMYCIN - TROUGH 25.9 ug/mL (10.0-20.0); eGFR NON AFRICAN AMERICAN > 90 mL/min (90-120)
[2019-04-09 06:42] LABS: BASOPHILS 0.3 % (0-2); EOSINOPHILS 1.9 % (0-7); HEMATOCRIT 32.8 % (42.0-54.0); HEMOGLOBIN 11.1 g/dL (13.5-17.5); IMMATURE GRANULOCYTES 0.4 % (0-5); LYMPHOCYTES 9.9 % (15-50); MCH 31.4 pg (26.0-34.0); MCHC 33.8 g/dL (31.0-37.0); MCV 92.9 fL (80.0-100.0); MEAN PLATELET VOLUME 10.1 fL (7.4-10.4); MONOCYTES 6.3 % (2-11); NEUTROPHILS 81.2 % (40-80); PLATELET COUNT 702 10x3/uL (130-400); RBC 3.53 10x6/uL (4.20-6.10); RDW 13.2 % (11.5-14.5); WBC 11.2 10x3/uL (4.8-10.8)
--- NOTE | 2019-04-09 06:50 | NUR ---
RESTING QUIETLY OSTOMY EMPTIED. MEDS PER JUL. RESTING QUIETLY.
--- NOTE | 2019-04-09 07:00 | NUR ---
ALERT AND ORIENTED, SITTING UP IN BED. NO C/O PAIN. NO S/S OF ACUTE DISTRESS NOTED. POD #12 ILEOSTOMY, WATERY STOOL PRESENT. SCDS PRESENT. LEFT IJ, D5 LR WITH 20K+ INFUSING @ 75ML/HR. SITE PATENT WITHOUT REDNESS OR SWELLING. MIDLINE INCISION WITH DRESSING C/D/I. DENIES ANY NEEDS AT THIS TIME. CALL LIGHT IN REACH. WILL CONTINUE TO MONITOR.
[2019-04-09 08:35] VITALS: BP 152/62
--- NOTE | 2019-04-09 10:47 | NUR ---
INSERTED PERIPHERAL IV TO RIGHT HAND, 22 GA X1 STICK. PER PHYSICIAN REQUEST.
--- NOTE | 2019-04-09 11:24 | NUR ---
I have reviewed this patient and I concur with the Shift Assessment completed by the Licensed Practical Nurse today this shift.
--- NOTE | 2019-04-09 11:33 | NUR ---
LEFT CVL REMOVED USING STERILE TECHIQUE. NO BLEEDING NOTED, COVERED WITH STERILE DRESSING. PATIENT TOLERATED WELL.
[2019-04-09 12:15] VITALS: BP 132/64
[2019-04-09 16:51] VITALS: BP 128/61
--- NOTE | 2019-04-09 18:20 | NUR ---
ALERT AND ORIENTED, SITTING UP IN BED. FAMILY AT BEDSIDE. NO C/O PAIN. NO S/S OF ACUTE DISTRESS NOTED. DENIES ANY NEEDS AT THIS TIME. CALL LIGHT IN REACH. WILL CONTINUE TO MONITOR.
--- NOTE | 2019-04-09 20:00 | NUR ---
ASSESSMENT PER FLOWSHEET. IV PATENT RT HAND OF PROCAL AT 75CC'S/HR SITE CLEAR. ABD. INCISION C/D/I. RT ILEOSTOMY IN PLACE.EMPTIED 350CC'S DARK BROWN LIQUID STOOL.
[2019-04-09 20:48] VITALS: BP 133/80
--- NOTE | 2019-04-09 21:47 | NUR ---
REQUESTING PAIN MED AND NERVE PILL. SITTING UPRIGHT IN BED TALKING ON CELL PHONE. ATIVAN 1MG PO GIVEN FOR NERVES AND NORCO 7.5MG TAB ONE PO GIVEN FOR PAIN CONTROL.
--- NOTE | 2019-04-10 | NUR ---
REMAINS AWAKE PLAYING GAMES ON HIS PHONE.
--- NOTE | 2019-04-10 03:36 | NUR ---
AWAKE MEDS GIVEN PER MAR.
[2019-04-10 05:12] VITALS: BP 126/80
[2019-04-10 06:14] LABS: BASOPHILS 0.3 % (0-2); HEMATOCRIT 36.7 % (42.0-54.0); HEMOGLOBIN 12.2 g/dL (13.5-17.5); IMMATURE GRANULOCYTES 0.4 % (0-5); LYMPHOCYTES 10.8 % (15-50); MCH 30.9 pg (26.0-34.0); MCHC 33.2 g/dL (31.0-37.0); MCV 92.9 fL (80.0-100.0); MEAN PLATELET VOLUME 9.9 fL (7.4-10.4); MONOCYTES 8.4 % (2-11); NEUTROPHILS 78.1 % (40-80); PLATELET COUNT 769 10x3/uL (130-400); RBC 3.95 10x6/uL (4.20-6.10); RDW 13.1 % (11.5-14.5); WBC 10.4 10x3/uL (4.8-10.8)
[2019-04-10 06:32] LABS: CALC OSMOLALITY 265 mosm/kg (275-300); CALCIUM 8.5 mg/dL (8.5-10.1); CARBON DIOXIDE 24.4 mmol/L (21.0-32.0); CHLORIDE - SERUM 101 mmol/L (98-107); CREATININE - SERUM 0.6 mg/dL (0.6-1.3); GLUCOSE 95 mg/dL (74-106); MAGNESIUM - SERUM 2.1 mg/dL (1.8-2.4); PHOSPHOROUS 3.2 mg/dL (2.5-4.9); POTASSIUM - SERUM 3.9 mmol/L (3.5-5.1); SODIUM 134 mmol/L (136-145); eGFR NON AFRICAN AMERICAN > 90 mL/min (90-120)
[2019-04-10 06:33] LABS: UREA NITROGEN 7 mg/dL (7-18)
--- NOTE | 2019-04-10 07:05 | NUR ---
ALERT AND ORIENTED, RESTING IN BED. FAMILY AT BEDSIDE. POD #13 ILEOSTOMY, MIDLINE WITH ZARIA, DRESSING C/D/I. IV TO RIGHT HAND, PROCAL @ 75ML/HR. SITE PATENT WITHOUT REDNESS OR SWELLING. DENIES ANY NEEDS AT THIS TIME. CALL LIGHT IN REACH. WILL CONTINUE TO MONITOR.
[2019-04-10 08:37] VITALS: BP 115/77
[2019-04-10 11:59] VITALS: BP 120/98
--- NOTE | 2019-04-10 12:26 | MORECARE ---
CASE MANAGEMENT DISCHARGE SUMMARY PATIENT: LI MUHAMMAD UNIT: [id number] ADM DATE: 03/22/19 AGE: 48 : 70 SEX: M ROOM/BED: D.2230 AUTHOR: LORENZO CORDOVA PHYSICIAN: REFERRING PHYSICIAN: RODRÍGUEZ NERI DO DATE OF SERVICE: 04/10/19 Discharge Plan Patient Name: LI MUHAMMAD Facility: [facility]:[place] : 1970 Planned Disposition: Home Anticipated Discharge Date: Discharge Date: Expected LOS: Initial Reviewer: [email or web address] Initial Review Date: 03/26/2019 Generated: 04/10/19 1:26 pm Comments DCP- Discharge Planning Updated by [email or web address]: Heather Duff on 04/10/19 11:[address] I called patient's sister, Vivian, per patient's request concerning discharge planning. She states that she is a nurse at a [employer] and has her brother set up with a surgeon and a PCP for follow up care. She states she has also gotten supplies from [employer] [facility] [employer] for his ostomy after speaking with Dr. Bose. Her will be coming tomorrow for anticipation of patient's discharge to pick him up and will be driving him to [place] where they will spend the night and he will have a 2 hour flight to [place] on Monday. She requests a care package of Marck hose, guaze, emesis basin and extra ostomy supplies. I gave the list to his primary nurse, Iraida. I have provided him with his patient summary and a disc from radiology per his request. CM will continue to follow and assist with discharge planning/needs. Vivian - sister - [phone] DCP- Discharge Planning Updated by [email or web address]: Heather Duff on 03/26/19 3:[address] Patient Name: LI MUHAMMAD Admission Status: ER Accout number: [id number] Admission Date: 03-22-2019 : 1970 Admission Diagnosis: Attending: RODRÍGUEZ NERI Current LOS: 4 Anticipated DC Date: Planned Disposition: Home Primary Insurance: UNINSURED DISCOUNT PLAN Discharge Planning Comments: CM met with patient in the room to discuss discharge planning/needs. He is complaining of pain and primary nurse notified. He was visiting here from [place]. He states plan to return to [place] on discharge. He is independent with all ADL's and AIDL's. He states he does not have any DME or need any DME. He is asking me to come back at a later date, unable to talk well with NGT. CM will continue to follow and assist with discharge planning/needs. Charge Master Analyst: Heather Ureña DP export: 03/26/19 3:43 p Patient Name: LI MUHAMMAD Page [id number] at 1226 All edits/amendments must be made on the electronic document DICTATION DATE: 04/10/191225 SURVEY WORKER: ANDREAS 04/10/19 1226 RPT#: [id number] DC DATE: STATUS: ADM IN [facility] [address] [place] [address] END OF REPORT
--- NOTE | 2019-04-10 13:03 | NUR ---
NUTRITION F//U PROCALAMINE @ 75 CC/HR. FULL LIQUID DIET ADVANCED TO REG. PT TOLERATING BUT STATES "I'M GOING SLOW". WILL HONOR FOOD PREFERENCES, MONITOR PO INTAKE. RD FOLLOWING
[2019-04-10 16:23] VITALS: BP 124/82
--- NOTE | 2019-04-10 18:44 | NUR ---
ALERT AND ORIENTED, RESTING IN BED. FAMILY AT BEDSIDE. NO C/O PAIN. NO S/S OF ACUTE DISTRESS NOTED. DENIES ANY NEEDS AT THIS TIME CALL LIGHT IN REACH WILL CONTINUE TO MONITOR.
--- NOTE | 2019-04-10 20:00 | NUR ---
ASSESSMENT PER FLOWSHEET. IV PATENT RT HAND OF PROCAL AT 75CC'S/HR. ABD.INCISION DRESSING C/D/I RT ILEOSTOMY INTACT AND EMPTIED 350CC'S.
[2019-04-10 21:12] VITALS: BP 119/81
--- NOTE | 2019-04-10 21:15 | NUR ---
MEDS GIVEN PER JUL. SR UP X2 CALL LIGHT WITHIN REACH.
--- NOTE | 2019-04-11 | NUR ---
RESTING QUIETLY DENIES NEEDS.
--- NOTE | 2019-04-11 | NUR ---
REMAINS AWAKE PLAYING ON CELL PHONE DENIES NEEDS.
--- NOTE | 2019-04-11 01:33 | NUR ---
REQUESTING PAIN MED NORCO 7.5 MG PO TAB ONE FOR PAIN CONTROL.
[2019-04-11 01:47] VITALS: BP 143/67
[2019-04-11 06:22] VITALS: BP 121/74
[2019-04-11 06:39] LABS: BASOPHILS 0.5 % (0-2); EOSINOPHILS 2.6 % (0-7); HEMATOCRIT 37.1 % (42.0-54.0); HEMOGLOBIN 12.6 g/dL (13.5-17.5); IMMATURE GRANULOCYTES 0.5 % (0-5); LYMPHOCYTES 15.4 % (15-50); MCH 31.4 pg (26.0-34.0); MCV 92.5 fL (80.0-100.0); MEAN PLATELET VOLUME 9.5 fL (7.4-10.4); MONOCYTES 9.2 % (2-11); NEUTROPHILS 71.8 % (40-80); PLATELET COUNT 695 10x3/uL (130-400); RBC 4.01 10x6/uL (4.20-6.10); RDW 13.3 % (11.5-14.5); WBC 7.8 10x3/uL (4.8-10.8)
--- NOTE | 2019-04-11 06:44 | NUR ---
MEDS GIVEN PER JUL. RESTING QUIETLY
[2019-04-11 07:01] LABS: CALC OSMOLALITY 266 mosm/kg (275-300); CALCIUM 8.8 mg/dL (8.5-10.1); CARBON DIOXIDE 24.7 mmol/L (21.0-32.0); CHLORIDE - SERUM 101 mmol/L (98-107); CREATININE - SERUM 0.7 mg/dL (0.6-1.3); GLUCOSE 97 mg/dL (74-106); POTASSIUM - SERUM 4.1 mmol/L (3.5-5.1); SODIUM 133 mmol/L (136-145); eGFR NON AFRICAN AMERICAN > 90 mL/min (90-120)
[2019-04-11 07:02] LABS: UREA NITROGEN 14 mg/dL (7-18)
--- NOTE | 2019-04-11 08:07 | NUR ---
AWAKE AND ALERT. ORIENTED X3. ILEOSTOMY IS LEAKING. CHANGED PER STAFF WHILE INSTRUCTING PATIENT. PATIENT VERBALIZED UNDERSTANDING OF SAME. ALL QUESTIONS ANSWERED. LUNGS ARE CLEAR BILATERALLY, NO COUGH NOTED.SKIN IS INTACT WITHOUT REDNESS EXCEPT INCISION TO MID ABDOMEN WHICH HAS A DRY INTACT DRESSING IN PLACE. IV TO RIGHT HAND IS PATENT WITHOUT REDNESS AT INSERTION SITE. REPORTS ANXIOUS TO LEAVE. DENIES NEEDS.
[2019-04-11 08:42] VITALS: BP 126/86
[2019-04-11] MEDS ORDERED: LEVOFLOXACIN500 MG PO (08:43)
[2019-04-11] MEDS ORDERED: HYDROCODON-ACE1 EAC7 PO (08:43)
--- NOTE | 2019-04-11 09:10 | NUR ---
REQUESTED AND GIVNE ONE HYDROCODONE PO FOR C/O ABDOMINAL PAIN LEVEL 10. WILL MONITOR.
--- NOTE | 2019-04-11 09:30 | NUR ---
PATIENT ABLE TO CHANGE OSTOMY APPLIANCE PER SELF. DID WELL.
--- NOTE | 2019-04-11 11:00 | NUR ---
DISCHARGE ORDERS RECEIVED. DISCHARGE INSTRUCTIONS GIVNE BOTH VERBALLY AND WRITTEN. ALL QUESTIONS ANSWERED. PATIENT VERBALIZED UNDERSTANDING OF SAME. NEEDED PRESCRIPTIONS GIVEN TO PATIENT. DRESSING CHANGED TO MID ABDOMEN PATIENT INSTRUCTED IN CARE OF SAME. ALL QUESTIONS ANSWERED. DAO'S PLACED TO BOTH LEGS. ALL QUESTIONS ANSWERED. ZAKIYA NEEDS. WAITING ON RIDE TO D/C.
--- NOTE | 2019-04-11 12:40 | NUR ---
DISCHARGED TO HOME [facility]. ALL BELONGINGS WITH PATIENT.
[2019-04-11 12:44] VITALS: BP 118/80
--- NOTE | 2019-04-12 15:45 | MORECARE ---
CASE MANAGEMENT DISCHARGE SUMMARY PATIENT: LI MUHAMMAD UNIT: [id number] ADM DATE: 03/22/19 AGE: 48 : 70 SEX: M ROOM/BED: D.2230 AUTHOR: LORENZO CORDOVA PHYSICIAN: REFERRING PHYSICIAN: RODRÍGUEZ NERI DO DATE OF SERVICE: 04/12/19 Discharge Plan Patient Name: LI MUHAMMAD Facility: [facility]:[place] : 1970 Planned Disposition: Home Anticipated Discharge Date: Discharge Date: 04/11/2019 Expected LOS: Initial Reviewer: [email or web address] Initial Review Date: 03/26/2019 Generated: 04/12/19 4:45 pm Comments DCP- Discharge Planning Updated by [email or web address]: Heather Omega on 04/10/19 11:[address] I called patient's sister, Vivian, per patient's request concerning discharge planning. She states that she is a nurse at a [employer] and has her brother set up with a surgeon and a PCP for follow up care. She states she has also gotten supplies from [facility] for his ostomy after speaking with Dr. Bose. Her will be coming tomorrow for anticipation of patient's discharge to pick him up and will be driving him to [place] where they will spend the night and he will have a 2 hour flight to [place] on Monday. She requests a care package of Marck hose, guaze, emesis basin and extra ostomy supplies. I gave the list to his primary nurse, Iraida. I have provided him with his patient summary and a disc from radiology per his request. CM will continue to follow and assist with discharge planning/needs. Vivian - sister - [phone] DCP- Discharge Planning Updated by [email or web address]: Heather Hernandezisatu on 03/26/19 3:[address] Patient Name: LI MUHAMMAD Admission Status: ER Accout number: [id number] Admission Date: 03-22-2019 : 1970 Admission Diagnosis: Attending: RODRÍGUEZ NERI Current LOS: 4 Anticipated DC Date: Planned Disposition: Home Primary Insurance: UNINSURED DISCOUNT PLAN Discharge Planning Comments: CM met with patient in the room to discuss discharge planning/needs. He is complaining of pain and primary nurse notified. He was visiting here from [place]. He states plan to return to [place] on discharge. He is independent with all ADL's and AIDL's. He states he does not have any DME or need any DME. He is asking me to come back at a later date, unable to talk well with NGT. CM will continue to follow and assist with discharge planning/needs. Clinical Pathologist: Heather Ureña DP export: 04/10/19 11:26 Patient Name: LI MUHAMMAD Page [id number] at [id number] All edits/amendments must be made on the electronic document DICTATION DATE: 04/12/191544 PROVIDER RELATIONS CONSULTANT: ANDREAS 04/12/191544 RPT#: [id number] DC DATE:04/11/19 STATUS: DIS IN [facility] [address] [place] [address] END OF REPORT
== END 2019-04-11 12:51 | disposition home or self-care (01) | DRG 853 ==
LOC: D.ER 09:56 → D.MS 14:25 → D.ICU 03-28 20:53 → D.MS 03-29 11:10
PROVIDERS: Family Medicine; Internal Medicine Nephrology; Surgery; ADMIT Family Medicine; ATTEND Family Medicine
PROC: 0DTJ0ZZ Resection of Appendix, Open Approach (ICD-10-PCS; 2019-03-28)
PROC: 05HN33Z Insertion of Infusion Device into Left Internal Jugular Vein, Percutaneous Approach (ICD-10-PCS; 2019-03-28)
PROC: B544ZZA Ultrasonography of Left Jugular Veins, Guidance (ICD-10-PCS; 2019-03-28)
PROC: 0DTN0ZZ Resection of Sigmoid Colon, Open Approach (ICD-10-PCS; principal; 2019-03-28 12:15)
PROC: 0D1B0Z4 Bypass Ileum to Cutaneous, Open Approach (ICD-10-PCS; 2019-03-28 12:15)
DX: A41.9 Sepsis, unspecified organism (principal); K65.1 Peritoneal abscess; J69.0 Pneumonitis due to inhalation of food and vomit; K57.20 Diverticulitis of large intestine with perforation and abscess without bleeding; F17.203 Nicotine dependence unspecified, with withdrawal; N39.0 Urinary tract infection, site not specified; K56.600 Partial intestinal obstruction, unspecified as to cause; E46 Unspecified protein-calorie malnutrition; K52.9 Noninfective gastroenteritis and colitis, unspecified; E86.0 Dehydration; Z72.89 Other problems related to lifestyle; F12.90 Cannabis use, unspecified, uncomplicated; F14.90 Cocaine use, unspecified, uncomplicated; K21.9 Gastro-esophageal reflux disease without esophagitis; Z68.22 Body mass index [BMI] 22.0-22.9, adult